=== PATIENT | male | born 1930 | race Caucasian/White ===

== ENCOUNTER 2018-11-06 22:16 | Observation (INO) | payer MEDICARE ==
[2018-11-06] MEDS ORDERED: ONDANSETRON 4 MG/2 ML VIAL IVP STA (22:21)
[2018-11-06] MEDS ORDERED: PANTOPRAZOLE 40 MG/10 ML VIAL IVP STA (22:21)
[2018-11-06] MEDS ORDERED: LORazepam 2 MG/ML INJ IV STA (22:21)
[2018-11-06] MEDS ORDERED: SODIUM CHLORIDE 0.9% 500 ML 500 ML IV STA (22:21)
[2018-11-06] MEDS ORDERED: SODIUM CHLORIDE 0.9% 1,000 ML IV STA (22:21)
[2018-11-06 23:00] LABS: Basophils % (A) 0 %; Eosinophils % (A) 0 %; HGB 13.6 gm/dL (13.0-17.5); Lymphocytes # (A) 1.2 k/uL (1.0-4.8); Lymphocytes % (A) 11 %; MCH 28.8 pg (25.0-35.0); MCV 92.8 fL (80.0-100.0); Mean Platelet Volume 7.7; Monocytes # (A) 0.4 k/uL (0-1.0); Monocytes % (A) 4 %; Neutrophils # (A) 9.2 k/uL (1.3-7.7); Neutrophils % (A) 84 %; Platelet Count 198 k/uL (150-450); RBC 4.74 m/uL (4.30-5.90); RDW 13.9 % (11.5-15.5)
--- NOTE | 2018-11-06 23:01 | ED ---
Dizziness HPI - General Chief Complaint: Dizziness Stated Complaint: Dizziness/Vomiting Time Seen by Provider: 11/06/18 22:21 Source: EMS, RN notes reviewed, old records reviewed Mode of arrival: EMS Limitations: no limitations - History of Present Illness Initial Comments: This is an 88-year-old male the ER for evaluation patient resents today for eval uation of sudden onset dizziness with nausea and vomiting. Intractable nausea vomiting no headache. No trauma. Patient's on anticoagulation not TPA candidate. denies any other neurological complaint actively vomiting here in the ER history obtained from family members and EMS MD Complaint: dizziness, difficulty walking -: hour(s) Timing: sudden onset Description: sense of movement, "room spinning", off-balance, difficulty walking History of Same: No History of Trauma: No Severity: moderate Improves With: remaining still Worsens With: movement Associated Symptoms: denies other symptoms - Related Data Home Medications Medication Instructions Recorded Confirmed Multivitamins, Thera [Multivitamin 1 tab PO DAILY 12/30/16 11/06/18 (formulary)] Simvastatin [Zocor] 20 mg PO HS 12/30/16 11/06/18 Aspirin EC [Ecotrin Low Dose] 81 mg PO DAILY 11/06/18 11/06/18 Glucosam/Johnathon-Msm1/C/Jr/Bosw 1 tab PO DAILY 11/06/18 11/06/18 [Glucosamine-Chondroitin Tablet] Metoprolol Succinate (ER) [Toprol 100 mg PO DAILY 11/06/18 11/06/18 Xl] Rivaroxaban [Xarelto] 15 mg PO HS 11/06/18 11/06/18 Allergies Allergy/AdvReac Type Severity Reaction Status Date / Time No Known Allergies Allergy Verified 11/06/18 22:37 Review of Systems ROS Statement: Those systems with pertinent positive or pertinent negative responses have been documented in the HPI. ROS Other: All systems not noted in ROS Statement are negative. Past Medical History Past Medical History: Atrial Fibrillation History of Any Multi-Drug Resistant Organisms: None Reported Past Surgical History: Orthopedic Surgery Additional Past Surgical History / Comment(s): right knee x2 knee scopes, blepharoplasty right eye Past Psychological History: No Psychological Hx Reported Smoking Status: Former smoker Past Alcohol Use History: Occasional Past Drug Use History: None Reported - Past Family History Mother Family Medical History: Coronary Artery Disease (CAD) Father Family Medical History: Coronary Artery Disease (CAD) Brother(s) Family Medical History: Cancer (col;on), Neurologic Disorder (Parkinson's) Son(s) Family Medical History: Diabetes Mellitus General Exam - General Exam Comments Initial Comments: NIH of 0 Limitations: no limitations General appearance: alert, in no apparent distress Head exam: Present: atraumatic, normocephalic, normal inspection Eye exam: Present: normal appearance, PERRL, EOMI. Absent: scleral icterus, conjunctival injection, periorbital swelling ENT exam: Present: normal exam, mucous membranes moist Neck exam: Present: normal inspection. Absent: tenderness, meningismus, lymphadenopathy Respiratory exam: Present: normal lung sounds bilaterally. Absent: respiratory distress, wheezes, rales, rhonchi, stridor Cardiovascular Exam: Present: regular rate, normal rhythm, normal heart sounds. Absent: systolic murmur, diastolic murmur, rubs, gallop, clicks GI/Abdominal exam: Present: soft, normal bowel sounds. Absent: distended, tenderness, guarding, rebound, rigid Extremities exam: Present: normal inspection, full ROM, normal capillary refill. Absent: tenderness, pedal edema, joint swelling, calf tenderness Back exam: Present: normal inspection Neurological exam: Present: alert, oriented X3, CN II-XII intact Psychiatric exam: Present: normal affect, normal mood Skin exam: Present: warm, dry, intact, normal color. Absent: rash Course Vital Signs 11/06/18 11/06/18 11/06/18 22:35 23:00 23:10 Temperature 97.4 F L Pulse Rate 73 83 83 Respiratory 18 20 20 Rate Blood Pressure 153/92 184/117 172/112 O2 Sat by Pulse 99 95 90 L Oximetry - Reevaluation(s) Reevaluation #1: 11/06/18 23:32 Medical records reviewed Reevaluation #2: 11/06/18 23:32 Patient has significant improvement in symptoms here in the ER Reevaluation #3: 11/06/18 23:32 No focal neurological findings EKG Findings - EKG Comments: EKG Findings:: EKG shows A. fib rate of 87, QRS 70, QTc 488 Medical Decision Making - Medical Decision Making 88 male the ER for evaluation presents today for evaluation regards to nausea vomiting elevated blood pressure not feeling well. Patient be admitted for nausea control blood pressure control - Lab Data Result diagrams: 11/06/18 22:45 11/06/18 22:45 Lab Results 11/06/18 11/06/18 11/06/18 Range/Units 22:45 22:45 22:45 WBC 11.0 H (3.8-10.6) k/uL RBC 4.74 (4.30-5.90) m/uL Hgb 13.6 (13.0-17.5) gm/dL Hct 44.0 (39.0-53.0) % MCV 92.8 (80.0-100.0) fL MCH 28.8 (25.0-35.0) pg MCHC 31.0 (31.0-37.0) g/dL RDW 13.9 (11.5-15.5) % Plt Count 198 (150-450) k/uL Neutrophils % 84 % Lymphocytes % 11 % Monocytes % 4 % Eosinophils % 0 % Basophils % 0 % Neutrophils # 9.2 H (1.3-7.7) k/uL Lymphocytes # 1.2 (1.0-4.8) k/uL Monocytes # 0.4 (0-1.0) k/uL Eosinophils # 0.0 (0-0.7) k/uL Basophils # 0.0 (0-0.2) k/uL PT (9.0-12.0) sec INR (<1.2) APTT (22.0-30.0) sec Sodium 139 (137-145) mmol/L Potassium 4.8 (3.5-5.1) mmol/L Chloride 106 (98-107) mmol/L Carbon Dioxide 21 L (22-30) mmol/L Anion Gap 12 mmol/L BUN 20 (9-20) mg/dL Creatinine 0.91 (0.66-1.25) mg/dL Est GFR (CKD-EPI)AfAm 87 (>60 ml/min/1.73 sqM) Est GFR (CKD-EPI)NonAf 76 (>60 ml/min/1.73 sqM) Glucose 194 H (74-99) mg/dL Plasma Lactic Acid Elder 1.9 (0.7-2.0) mmol/L Calcium 9.3 (8.4-10.2) mg/dL Phosphorus 2.9 (2.5-4.5) mg/dL Magnesium 2.0 (1.6-2.3) mg/dL Total Bilirubin 0.8 (0.2-1.3) mg/dL AST 30 (17-59) U/L ALT 19 L (21-72) U/L Alkaline Phosphatase 74 (38-126) U/L Creatine Kinase 49 L (55-170) U/L Troponin I (0.000-0.034) ng/mL Total Protein 7.4 (6.3-8.2) g/dL Albumin 4.2 (3.5-5.0) g/dL Lipase 70 (23-300) U/L 11/06/18 11/06/18 Range/Units 22:45 22:45 WBC (3.8-10.6) k/uL RBC (4.30-5.90) m/uL Hgb (13.0-17.5) gm/dL Hct (39.0-53.0) % MCV (80.0-100.0) fL MCH (25.0-35.0) pg MCHC (31.0-37.0) g/dL RDW (11.5-15.5) % Plt Count (150-450) k/uL Neutrophils % % Lymphocytes % % Monocytes % % Eosinophils % % Basophils % % Neutrophils # (1.3-7.7) k/uL Lymphocytes # (1.0-4.8) k/uL Monocytes # (0-1.0) k/uL Eosinophils # (0-0.7) k/uL Basophils # (0-0.2) k/uL PT 12.6 H (9.0-12.0) sec INR 1.2 H (<1.2) APTT 30.8 H (22.0-30.0) sec Sodium (137-145) mmol/L Potassium (3.5-5.1) mmol/L Chloride (98-107) mmol/L Carbon Dioxide (22-30) mmol/L Anion Gap mmol/L BUN (9-20) mg/dL Creatinine (0.66-1.25) mg/dL Est GFR (CKD-EPI)AfAm (>60 ml/min/1.73 sqM) Est GFR (CKD-EPI)NonAf (>60 ml/min/1.73 sqM) Glucose (74-99) mg/dL Plasma Lactic Acid Elder (0.7-2.0) mmol/L Calcium (8.4-10.2) mg/dL Phosphorus (2.5-4.5) mg/dL Magnesium (1.6-2.3) mg/dL Total Bilirubin (0.2-1.3) mg/dL AST (17-59) U/L ALT (21-72) U/L Alkaline Phosphatase (38-126) U/L Creatine Kinase (55-170) U/L Troponin I <0.012 (0.000-0.034) ng/mL Total Protein (6.3-8.2) g/dL Albumin (3.5-5.0) g/dL Lipase (23-300) U/L - Radiology Data Radiology results: report reviewed (CT brain is negative for acute disease), image reviewed Disposition Clinical Impression: Cerebrovascular accident, Transient cerebral ischemia, Hypertension Disposition: ADMITTED IP TO THIS [facility] Condition: Good Is patient prescribed a controlled substance at d/c from ED?: No Referrals: Tyson Espinoza MD [Primary Care Provider] - 1-2 days
[2018-11-06 23:04] LABS: Albumin 4.2 g/dL (3.5-5.0); Calcium 9.3 mg/dL (8.4-10.2); Phosphorus 2.9 mg/dL (2.5-4.5); Potassium 4.8 mmol/L (3.5-5.1); Total Bilirubin 0.8 mg/dL (0.2-1.3); Total Protein 7.4 g/dL (6.3-8.2)
[2018-11-06 23:08] LABS: INR 1.2 (<1.2); Partial Thromboplastin Time 30.8 sec (22.0-30.0); Prothrombin Time 12.6 sec (9.0-12.0)
[2018-11-06] MEDS ORDERED: LABETALOL 5 MG/ML VIAL MDV IVP STA (23:26)
[2018-11-06] MEDS ORDERED: ASPIRIN 325 MG TAB PO STA (23:26)
[2018-11-06] MEDS ORDERED: ONDANSETRON 4 MG/2 ML VIAL IVP PRN (23:32)
--- NOTE | 2018-11-06 23:35 | CT ---
EXAM: CT Head Without Intravenous Contrast CLINICAL HISTORY: pain TECHNIQUE: Axial computed tomography images of the head/brain without intravenous contrast. CTDI is 0.085, 0.085, 49.1 mGy and DLP is 1117.4 mGy-cm. This CT exam was performed using one or more of the following dose reduction techniques: automated exposure control, adjustment of the mA and/or kV according to patient size, and/or use of iterative reconstruction technique. COMPARISON: No relevant prior studies available. FINDINGS: Brain: No acute intracranial hemorrhage, mass, or significant mass effect. Nonspecific areas of hypoattenuation in the periventricular white matter likely represent the sequela of chronic small vessel ischemic disease. Indeterminate subcentimeter focus of hypoattenuation in the left caudate nucleus, possibly a remote lacunar infarct. Ventricles: Ventricular and sulcal prominence commensurate with the patient's age. Bones/joints: Unremarkable. No acute fracture. Soft tissues: Unremarkable. Sinuses: Unremarkable. Mastoid air cells: Unremarkable. IMPRESSION: No acute intracranial abnormality.
[2018-11-07] MEDS: SODIUM CHLORIDE 0.9% 1,000 ML IV SCH ×2 (00:27→11:04)
--- NOTE | 2018-11-07 01:34 | US ---
EXAM: US Duplex Bilateral Extracranial Arteries CLINICAL HISTORY: ITS.REASON US Reason: Pain TECHNIQUE: Real-time duplex ultrasound scan of the extracranial arteries integrating B-mode two-dimensional vascular structure, Doppler spectral analysis and color flow Doppler imaging. COMPARISON: No relevant prior studies available. FINDINGS: Plaques seen in the bilateral carotids bulb, proximal ICA, and proximal ECA. Tortuous left ICA. Velocities are measured in centimeters per second. Right: CCA: 51 ICA: 65 ECA: 104 IC/CC ratio 1.3 Vert: Antegrade. Left: 59 ICA: 122 ECA: 107 ICA/CCA ratio 2.1 Vert: Antegrade. CAROTID STENOSIS REFERENCE USING SRU CRITERIA: Mild - <50% stenosis. ICA PSV is less than 125 cm/second and plaque or intimal thickening is visible. Moderate - 50-69% stenosis. ICA PSV is 125 to 230 cm/second and plaque is visible. Severe - 70-94% stenosis. ICA PSV is more than 230 cm/second and visible plaque with lumen narrowing is seen. Near occlusion - 95-99% stenosis. ICA PSV is variable and significant plaque with luminal narrowing is seen. Occluded - 100% stenosis. No flow identified. 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 No hemodynamically significant stenosis.
[2018-11-07 05:34] LABS: Cholesterol 146 mg/dL (<200); HDL Cholesterol 38 mg/dL (40-60); LDL Cholesterol,Calculated 80 mg/dL (0-99); Triglycerides 142 mg/dL (<150)
--- NOTE | 2018-11-07 08:47 | P.CNNES ---
History of Present Illness Consult date: 11/07/18 Requesting physician: Tyler Thomson Reason for Consult: TIA Chief complaint: Dizziness History of Present Illness: This is an 88 RH female who presented to ER last noc with sudden-onset diz ziness, N/V. Dizziness described room-spinning sensation with difficulty walking. Abrupt onset. Vision a bit blurred. No h/o head/neck trauma, chiropractic manipulation or heavy lifting. No other focal neuro c/o such as diplopia, amaurosis, drop attacks, facial numbness or droop, tinnitus, dysarthri a, dysphagia, aphasia, alternating or hemianesthesia or paresis, tremor or bowel/bladder incontinence. NIHSS 0 in ER. EKG showed afib rate 87. CT Head showed nil acute. Admitted for TIA work-up. Review of Systems I have performed a 14-point organ ROS with patient; pertinents are as per HPI. Past Medical History Past Medical History: Atrial Fibrillation History of Any Multi-Drug Resistant Organisms: None Reported Past Surgical History: Orthopedic Surgery Additional Past Surgical History / Comment(s): right knee x2 knee scopes, blepharoplasty right eye Past Anesthesia/Blood Transfusion Reactions: No Reported Reaction Past Psychological History: No Psychological Hx Reported Smoking Status: Former smoker Past Alcohol Use History: Occasional Additional Past Alcohol Use History / Comment(s): Patient was a smoker and quit in 1957. He denies any medical marijuana or street drug use. 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 He lives at home with his . Past Drug Use History: None Reported - Past Family History Mother Family Medical History: Coronary Artery Disease (CAD) Father Family Medical History: Coronary Artery Disease (CAD) Brother(s) Family Medical History: Cancer, Neurologic Disorder Son(s) Family Medical History: Diabetes Mellitus Medications and Allergies Home Medications Medication Instructions Recorded Confirmed Type Multivitamins, Thera [Multivitamin 1 tab PO DAILY 12/30/16 11/06/18 History (formulary)] Simvastatin [Zocor] 20 mg PO HS 12/30/16 11/06/18 History Aspirin EC [Ecotrin Low Dose] 81 mg PO DAILY 11/06/18 11/06/18 History Glucosam/Johnathon-Msm1/C/Jr/Bosw 1 tab PO DAILY 11/06/18 11/06/18 History [Glucosamine-Chondroitin Tablet] Metoprolol Succinate (ER) [Toprol 100 mg PO DAILY 11/06/18 11/06/18 History Xl] Rivaroxaban [Xarelto] 15 mg PO HS 11/06/18 11/06/18 History Allergies Allergy/AdvReac Type Severity Reaction Status Date / Time No Known Allergies Allergy Verified 11/06/18 22:37 Physical Examination - Vital Signs Vital Signs: Vital Signs Temp Pulse Pulse Resp BP BP Pulse Ox 11/07/18 04:00 97.6 F 80 16 137/83 97 11/07/18 02:03 97.4 F L 91 20 165/86 97 11/07/18 00:29 85 18 130/85 98 11/06/18 23:10 83 20 172/112 90 L 11/06/18 23:00 83 20 184/117 95 11/06/18 22:35 97.4 F L 73 18 153/92 99 Intake and Output 11/06/18 11/07/18 11/07/18 22:59 06:59 14:59 Output Total 250 Balance -250 Output: Urine 250 Other: Voiding Method Toilet Urinal # Voids 1 Weight 72.575 kg 75.8 kg Gen NAD Pleasant and cooperative HEENT NCAT Sclera without icterus O/P clear Neck Supple No carotid bruit Cor RRR no m/r/g Lungs CTAB Abd Soft NTND +BS Ext Warm to touch No edema Neuro MS A+Ox4 Normal fluency Able to follow all commands CN PERRL VFF no APD EOMI a couple beats of right lateral nystagmus or LULU No facial asymmetry Masseter's symmetric Hearing intact to normal voice bilaterally Speech not dysarthric Equal elevation of palate Tongue midline Sym shrug and SCM bilaterally Motor Normal bulk/tone No pronator drift or tremors Strength 5/5 sym throughout Sens Intact to LT x4 No neglect or extinction Coord No dysmetria on FTN bilaterally DTRs 2+/4 sym throughout Toes downgoing bilaterally No clonus at achilles Gait Deferred NIHSS 0 Results - Laboratory Findings CBC and BMP: 11/06/18 22:45 11/06/18 22:45 Abnormal Lab Findings: Abnormal Labs 11/06/18 11/06/18 11/06/18 22:45 22:45 22:45 WBC 11.0 H Neutrophils # 9.2 H PT 12.6 H INR 1.2 H APTT 30.8 H Carbon Dioxide 21 L Glucose 194 H ALT 19 L Creatine Kinase 49 L HDL Cholesterol 11/06/18 22:45 WBC Neutrophils # PT INR APTT Carbon Dioxide Glucose ALT Creatine Kinase HDL Cholesterol 38 L - Diagnostic Findings Additional findings: CT Head wo cont 11/07/18. No ICH. Nil acute. Carotid duplex 11/07/18. Atherosclerotic changes in BICA without hemodynamically significant stenosis. I have reviewed neuroimages myself. Assessment and Plan Assessment: Vertigo, suspect more peripheral than central Plan: -MRI Brain wo sebastián -Carotid duplex reviewed -TTE -On ASA 81mg/day, DOAC and statin therapy -TSH, B12 -PT/OT/SP per protocol -DVT prophylaxis: Guicho Thank you for this consultation. Please call with ?. Time with Patient: Greater than 30 (Time spent in direct patient care, greater than 50% of which was spent in [id number] counseling and coordination of care: 70 minutes)
[2018-11-07] MEDS: METOPROLOL SUCCINATE (ER) 100 MG TAB.ER.24H PO SCH (11:04)
--- NOTE | 2018-11-07 11:07 | CONS ---
CONSULTATION Tyler is an 88-year-old gentleman with history of atrial fibrillation prior history of CVA, dyslipidemia, who presented to hospital with symptoms of dizziness, nausea. Neurology had been consulted for TIA, they did not believe it was one. We have been consulted because of his cardiac history and underlying atrial fibrillation and uncontrolled hypertension. Patient denies chest pain, difficulty in breathing, palpitations, dizziness or syncope. PAST MEDICAL HISTORY: Significant for chronic atrial fibrillation, dyslipidemia, and hypertension. MEDICATIONS: At home include Zocor 20 q. daily, aspirin, Toprol-XL 100 q. daily, and Xarelto 15 mg daily. FAMILY HISTORY: Significant for premature coronary artery disease. Significant for diabetes, cancer and neurological disease. SOCIAL HISTORY: Negative for smoking, EtOH abuse, or drug abuse. REVIEW OF SYSTEMS: HEENT: As described above. CARDIAC: Negative. RESPIRATORY: Negative. GI: Negative. GENITOURINARY: Negative. ALLERGY/IMMUNOLOGY: Negative. SKIN: Negative. MUSCULOSKELETAL: Negative. ENDOCRINE: Negative. DERM: Negative. CONSTITUTIONAL: Negative. ONCOLOGICAL: Negative. Rest of the system review is not relevant. PHYSICAL EXAM: Patient is comfortable at rest. Vital signs are stable. There is no jugular venous distention. Carotid upstroke is normal. There is no bruit. chest exam reveals good air entry bilaterally. Heart exam reveals first and second heart sounds, irregular rhythm and a systolic murmur at the left lower sternal border. Abdomen is soft. Exam of extremities did not reveal any edema. Peripheral pulses are felt. LABS: Show a hemoglobin of 13.6, platelet count is 198, potassium 4.8, creatinine is 0.9. EKG shows atrial fibrillation with nonspecific ST-T wave changes. ASSESSMENT: 1. Dizziness probably noncardiac in origin. 2. Chronic atrial fibrillation with controlled ventricular rate. 3. History of cerebrovascular accident. 4. Uncontrolled hypertension. 5. Chronic atrial fibrillation. PLAN: Patient's blood pressure is well controlled. Continue current medications. I will obtain a 2D echo on her. MMODL / IJN: [id number] /
--- NOTE | 2018-11-07 11:46 | ECHOF ---
Referral Reason:HTN MEASUREMENTS -------- HEIGHT: 180.3 cm WEIGHT: 75.7 kg BP: 137/83 RVIDd: 3.9 cm (< 3.3) IVSd: 1.6 cm (0.6 - 1.1) LVIDd: 2.8 cm (3.9 - 5.3) LVPWd: 1.4 cm (0.6 - 1.1) IVSs: 1.7 cm LVIDs: 2.0 cm LVPWs: 1.6 cm LAESV Index (A-L): 34.70 ml/m Ao Diam: 3.2 cm (2.0 - 3.7) AV Cusp: 1.7 cm (1.5 - 2.6) LA Diam: 5.0 cm (2.7 - 3.8) EPSS: 0.9 cm AV maxP.77 mmHg AV meanP.76 mmHg RAP: 20.00* mmHg RVSP: 61.12 mmHg MV EF SLOPE: 128.77 mm/s (70 - 150) MV EXCURSION: 1.59 cm (> 18.000) FINDINGS -------- Atrial fibrillation. This was a technically adequate study. The left ventricular size is normal. There is moderate concentric left ventricular hypertrophy. O verall left ventricular systolic function is normal with, an EF between 55 - 60 %. The right ventricle is moderately enlarged. Left atrium is moderately dilated by volume. The right atrial size is normal. Interatrial and interventricular septum intact. There is moderate aortic valve sclerosis without stenosis. There is no evidence of aortic regurgita tion. There is no evidence of aortic stenosis. The mitral valve leaflets are mildly thickened. Moderate mitral annular calcification present. Mi ld mitral regurgitation is present. [id number]-[id number] tricuspid regurgitation present. There is severe pulmonary hypertension. The rig ht ventricular systolic pressure, as measured by Doppler, is 61.12mmHg. Trace/mild (physiologic) pulmonic regurgitation. The aortic root size is normal. The inferior vena cava is dilated with no significant inspiratory collapse which is consistent estima antonia right atrial pressure of >20 mmHg. There is no pericardial effusion. CONCLUSIONS -------- 1. Atrial fibrillation. 2. This was a technically adequate study. 3. The left ventricular size is normal. 4. There is moderate concentric left ventricular hypertrophy. 5. Overall left ventricular systolic function is normal with, an EF between 55 - 60 %. 6. The right ventricle is moderately enlarged. 7. Left atrium is moderately dilated by volume. 8. The right atrial size is normal. 9. Interatrial and interventricular septum intact. 10. There is moderate aortic valve sclerosis without stenosis. 11. There is no evidence of aortic regurgitation. 12. There is no evidence of aortic stenosis. 13. The mitral valve leaflets are mildly thickened. 14. Moderate mitral annular calcification present. 15. Mild mitral regurgitation is present. 16. Ybda-bc-gqbqxerm tricuspid regurgitation present. 17. There is severe pulmonary hypertension. 18. The right ventricular systolic pressure, as measured by Doppler, is 61.12mmHg. 19. Trace/mild (physiologic) pulmonic regurgitation. 20. The aortic root size is normal. 21. The inferior vena cava is dilated with no significant inspiratory collapse which is consistent es timated right atrial pressure of >20 mmHg. 22. There is no pericardial effusion. SENIOR ADMINISTRATIVE SUPPORT: Doreen Lee RDCS
[2018-11-07] MEDS ORDERED: MECLIZINE 25 MG TAB PO PRN (12:20)
[2018-11-07] MEDS: LISINOPRIL 5 MG TAB PO SCH (12:56)
--- NOTE | 2018-11-07 14:12 | P.HPIM ---
History of Present Illness H&P Date: 11/07/18 Chief Complaint: Dizziness nausea vomiting This is an 88-year-old male patient of Dr. Espinoza with a past medical history of chronic atrial fibrillation on Xarelto, hyperlipidemia, remote history of tobacco use. Patient complains of feeling dizzy and later in the day developed diarrhea. He states every time he moves he becomes dizzy and has vomiting. He denies any chest pain. He does have some chronic shortness of breath that is unchanged. He denies any abdominal pain. He does wear hearing aids. He complains of runny nose that is chronic and no change. He denies any problems with his speech. Patient presented to [facility] emergency center for evaluation. It initially, blood pressure 184/117. Heart rate 73, pulse ox 99% on room air. Patient has been afebrile. EKG was atrial fibrillation at controlled rate of [address]-T wave changes. CT of the head showed no acute intracranial abnormality. Carotid ultrasound showed no hemodynamically significant stenosis. Patient was placed on the cardiac stepdown unit and has been seen by neurology, Dr. Rosales and has been diagnosed with vertigo, peripheral versus central. He recommended continuing aspirin, Xarelto and statin therapy, echocardiogram, MRI of the brain. Patient has been seen by Dr. Falcon from cardiology with recommendations for blood pressure control and 2-D echo. Echocardiogram reveals EF of 55-60% with moderate concentric left ventricular hypertrophy, moderate aortic valve sclerosis without stenosis, mild mitral regurgitation, [id number] tricuspid regurgitation, severe pulmonary hypertension. Blood pressure remains elevated for which we will add lisinopril, IV fluids will be changed to saline lock. At the time of this evaluation, patient states that his symptoms are much improved and he does not feel dizzy anymore but has a fuzzy feeling. Symptoms seem to occur with rotation of his head. Orthostatic vital signs at been ordered. Review of Systems Constitutional: Denies anorexia, Denies chills, Denies chronic headaches, Denies fatigue, Denies fever, Denies lethargy, Denies malaise, Denies poor appetite, Denies weakness, Denies weight loss Eyes: denies blurred vision, denies loss of vision Ears: deny: earache Ears, nose, mouth and throat: Reports nasal discharge, Reports vertigo, Denies dysphagia, Denies epistaxis, Denies headache, Denies nasal congestion, Denies sore throat Cardiovascular: Denies chest pain, Denies decreased exercise tolerance, Denies dyspnea on exertion, Denies edema, Denies leg edema, Denies lightheadedness, Denies shortness of breath, Denies syncope Respiratory: Denies cough, Denies cough with sputum, Denies dyspnea, Denies excessive sputum, Denies hemoptysis, Denies home oxygen, Denies respiratory infections, Denies wheezing Gastrointestinal: Denies abdominal pain, Denies constipation, Denies diarrhea, Denies loss of appetite, Denies melena, Denies nausea, Denies vomiting Genitourinary: Denies urinary frequency, Denies urinary retention Musculoskeletal: Denies frequent falls, Denies gait dysfunction, Denies muscle weakness, Denies myalgias Integumentary: Denies pruritus, Denies rash, Denies wounds Neurological: Reports vertigo, Denies aphasia, Denies change in mentation, Denies change in smell/taste, Denies change in speech, Denies gait dysfunction, Denies head injury, Denies headaches, Denies numbness, Denies seizures, Denies weakness Psychiatric: Denies anxiety, Denies depression Endocrine: Denies fatigue, Denies weight change Past Medical History Past Medical History: Atrial Fibrillation History of Any Multi-Drug Resistant Organisms: None Reported Past Surgical History: Orthopedic Surgery Additional Past Surgical History / Comment(s): right knee x2 knee scopes, blepharoplasty right eye Past Anesthesia/Blood Transfusion Reactions: No Reported Reaction Past Psychological History: No Psychological Hx Reported Smoking Status: Former smoker Past Alcohol Use History: Occasional Additional Past Alcohol Use History / Comment(s): Patient was a smoker and quit in 1957. He denies any medical marijuana or street drug use. 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 He lives at home with his . Past Drug Use History: None Reported - Past Family History Mother Family Medical History: Coronary Artery Disease (CAD) Father Family Medical History: Coronary Artery Disease (CAD) Brother(s) Family Medical History: Cancer, Neurologic Disorder Additional Family Medical History / Comment(s): Parkinson's Son(s) Family Medical History: Diabetes Mellitus Medications and Allergies Home Medications Medication Instructions Recorded Confirmed Type Multivitamins, Thera [Multivitamin 1 tab PO DAILY 12/30/16 11/06/18 History (formulary)] Simvastatin [Zocor] 20 mg PO HS 12/30/16 11/06/18 History Aspirin EC [Ecotrin Low Dose] 81 mg PO DAILY 11/06/18 11/06/18 History Glucosam/Johnathon-Msm1/C/Jr/Bosw 1 tab PO DAILY 11/06/18 11/06/18 History [Glucosamine-Chondroitin Tablet] Metoprolol Succinate (ER) [Toprol 100 mg PO DAILY 11/06/18 11/06/18 History Xl] Rivaroxaban [Xarelto] 15 mg PO HS 11/06/18 11/06/18 History Allergies Allergy/AdvReac Type Severity Reaction Status Date / Time No Known Allergies Allergy Verified 11/06/18 22:37 Physical Exam Vitals: Vital Signs Temp Pulse Pulse Resp BP BP Pulse Ox 11/07/18 04:00 97.6 F 80 16 137/83 97 11/07/18 02:03 97.4 F L 91 20 165/86 97 11/07/18 00:29 85 18 130/85 98 11/06/18 23:10 83 20 172/112 90 L 11/06/18 23:00 83 20 184/117 95 11/06/18 22:35 97.4 F L 73 18 153/92 99 Intake and Output 11/06/18 11/07/18 11/07/18 22:59 06:59 14:59 Intake Total 240 Output Total 250 Balance -250 240 Intake: Oral 240 Output: Urine 250 Other: Voiding Method Toilet Urinal # Voids 1 Weight 72.575 kg 75.8 kg Gen: This is a 88-year-old male. He is resting in bed and appears to be comfortable and in no acute distress. Patient is a Should and is having no difficulty swallowing. HEENT: Head is atraumatic, normocephalic. Pupils equal, round. Sclerae is anicteric. NECK: Supple. No JVD. No lymphadenopathy. No thyromegaly. LUNGS: Clear to auscultation. No wheezes or rhonchi. No intercostal retractions. HEART: Regular rate and rhythm. No murmur. ABDOMEN: Soft. Bowel sounds are present. No masses. No tenderness. EXTREMITIES: No pedal edema. No calf tenderness. NEUROLOGICAL: Patient is awake, alert and oriented x3. Cranial nerves 2 through 12 are grossly intact. Positive nystagmus. Results CBC & Chem 7: 11/06/18 22:45 11/06/18 22:45 Labs: Abnormal Lab Results - Last 24 Hours (Table) 11/06/18 11/06/18 11/06/18 Range/Units 22:45 22:45 22:45 WBC 11.0 H (3.8-10.6) k/uL Neutrophils # 9.2 H (1.3-7.7) k/uL PT 12.6 H (9.0-12.0) sec INR 1.2 H (<1.2) APTT 30.8 H (22.0-30.0) sec Carbon Dioxide 21 L (22-30) mmol/L Glucose 194 H (74-99) mg/dL ALT 19 L (21-72) U/L Creatine Kinase 49 L (55-170) U/L HDL Cholesterol (40-60) mg/dL 11/06/18 Range/Units 22:45 WBC (3.8-10.6) k/uL Neutrophils # (1.3-7.7) k/uL PT (9.0-12.0) sec INR (<1.2) APTT (22.0-30.0) sec Carbon Dioxide (22-30) mmol/L Glucose (74-99) mg/dL ALT (21-72) U/L Creatine Kinase (55-170) U/L HDL Cholesterol 38 L (40-60) mg/dL Thrombosis Risk Factor Assmnt - DVT/VTE Prophylaxis DVT/VTE Prophylaxis: Pharmacologic Prophylaxis ordered - Choose All That Apply Any of the Below Risk Factors Present?: No Other Risk Factors: Yes Each Risk Factor Represents 3 Points: Age 75 years or older Other congenital or acquired thrombophilia - If yes, enter type in comment: No Thrombosis Risk Factor Assessment Total Risk Factor Score: 3 Thrombosis Risk Factor Assessment Level: Moderate Risk Assessment and Plan Plan: 1. Vertigo. Consult with neurology appreciated. MRI of the brain, ech ocardiogram and vitamin B12 level have been ordered. Continue aspirin 81 mg daily, Xarelto 50 mg at bedtime, Zocor 20 mg at bedtime. 2. Hypertension. Patient started on lisinopril 5 mg daily. 3. Chronic atrial fibrillation rate controlled. Continue Xarelto and metoprolol. 4. 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 5. History of right knee effusion, stable. 6. DVT prophylaxis. Xarelto Patient placed as an observation status. Discharge plan: Home most likely tomorrow. Impression and plan of care have been directed as dictated by the signing physician. Brianna Clay nurse practitioner acting as scribe for signing physician.
--- NOTE | 2018-11-07 15:17 | MR ---
MR brain without contrast HISTORY: Vertigo Multiplanar multisequence imaging through the brain Correlation CT brain 11/06/2018 There is no restricted diffusion. Cortical atrophy is again noted. Corpus callosum, pituitary, cervic al medullary junction, cerebellopontine angles are within normal limits. There is no hemorrhage or hy drocephalus. Mild inflammatory change present within the ethmoid air cells and frontal sinus. Conflue nt and scattered hyperintensities present in the periventricular white matter on inversion recovery T 2-weighted sequences. There are normal vascular flow voids. Orbits show symmetric appearance. IMPRESSION: Age-related atrophy and chronic small vessel ischemia. Mild sinus disease.
[2018-11-07] MEDS ORDERED: RIVAROXABAN 15 MG TAB PO SCH (21:00)
[2018-11-07] MEDS ORDERED: ATORVASTATIN 10 MG TAB PO SCH (21:00)
[2018-11-07] MEDS ORDERED: ASPIRIN 325 MG TAB PO SCH (23:28)
[2018-11-08 00:19] VITALS: PULSE 79
[2018-11-08 06:01] VITALS: RESP 16
[2018-11-08] MEDS: METOPROLOL SUCCINATE (ER) 100 MG TAB.ER.24H PO SCH (08:06)
[2018-11-08] MEDS: LISINOPRIL 5 MG TAB PO SCH (08:06)
[2018-11-08 08:21] VITALS: BP 141/83; TEMP 97.8
[2018-11-08] MEDS ORDERED: ASPIRIN 81 MG PO SCH (09:00)
--- NOTE | 2018-11-08 13:55 | P.DS ---
Providers Date of admission: 11/06/18 23:30 Expected date of discharge: 11/08/18 Attending physician: Bridgett Shaw Consults: 11/06/18 23:26 Consult Physician Routine Consulting Provider: Luis Rosales Consult Reason/Comments: tia Do you want consulting provider notified?: Yes Consult Physician Routine Consulting Provider: Jaswinder Simmons Consult Reason/Comments: htn Do you want consulting provider notified?: Yes Primary care physician: [facility] Course: This is an 88-year-old male patient of Dr. Espinoza with a past medical history of chronic atrial fibrillation on Xarelto, hyperlipidemia, remote history of tobacco use. Patient complains of feeling dizzy and later in the day developed diarrhea. He states every time he moves he becomes dizzy and has vomiting. He denies any chest pain. He does have some chronic shortness of breath that is unchanged. He denies any abdominal pain. He does wear hearing aids. He complains of runny nose that is chronic and no change. He denies any problems with his speech. Patient presented to [facility] emergency center for evaluation. It initially, blood pressure 184/117. Heart rate 73, pulse ox 99% on room air. Patient has been afebrile. EKG was atrial fibrillation at controlled rate of [address]-T wave changes. CT of the head showed no acute intracranial abnormality. Carotid ultrasound showed no hemodynamically significant stenosis. Patient was placed on the cardiac stepdown unit and has been seen by neurology, Dr. Rosales and has been diagnosed with vertigo, peripheral versus central. He recommended continuing aspirin, Xarelto and statin therapy, echocardiogram, MRI of the brain. Patient has been seen by Dr. Falcon from cardiology with recommendations for blood pressure control and 2-D echo. Echocardiogram reveals EF of 55-60% with moderate concentric left ventricular hypertrophy, moderate aortic valve sclerosis without stenosis, mild mitral regurgitation, [id number] tricuspid regurgitation, severe pulmonary hypertension. Blood pressure remains elevated for which we will add lisinopril, IV fluids will be changed to saline lock. At the time of this evaluation, patient states that his symptoms are much improved and he does not feel dizzy anymore but has a fuzzy feeling. Symptoms seem to occur with rotation of his head. Orthostatic vital signs at been ordered. 11/08: MRI of the brain revealed age-related atrophy and chronic small vessel ischemia. Mild sinus disease. Patient has not required meclizine. He states he is feeling much better and denies any dizziness. Blood pressure is lower this morning after we started lisinopril yesterday. Patient will not be provided a prescription for lisinopril and has been instructed to monitor his blood pressure and have Dr. Espinoza evaluated. Patient will be discharged home today in stable condition. Discharge diagnoses: 1. Vertigo. 2. Hypertension. 3. Chronic atrial fibrillation rate controlled. 4. 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 5. History of right knee effusion, stable. Discharge plan: Home Impression and plan of care have been directed as dictated by the signing physician. Brianna Clay nurse practitioner acting as scribe for signing physici an. Patient Condition at Discharge: Good Plan - Discharge Summary New Discharge Prescriptions: New Meclizine [Antivert] 25 mg PO Q6H PRN #30 tab PRN Reason: Vertigo Continue Multivitamins, Thera [Multivitamin (formulary)] 1 tab PO DAILY Simvastatin [Zocor] 20 mg PO HS Rivaroxaban [Xarelto] 15 mg PO HS Metoprolol Succinate (ER) [Toprol XL] 100 mg PO DAILY Glucosam/Johnathon-Msm1/C/Jr/Bosw [Glucosamine-Chondroitin Tablet] 1 tab PO DAILY Discontinued Aspirin EC [Ecotrin Low Dose] 81 mg PO DAILY Discharge Medication List Multivitamins, Thera [Multivitamin (formulary)] 1 tab PO DAILY 12/30/16 [History] Simvastatin [Zocor] 20 mg PO HS 12/30/16 [History] Glucosam/Johnathon-Msm1/C/Jr/Bosw [Glucosamine-Chondroitin Tablet] 1 tab PO DAILY 11/06/18 [History] Metoprolol Succinate (ER) [Toprol XL] 100 mg PO DAILY 11/06/18 [History] Rivaroxaban [Xarelto] 15 mg PO HS 11/06/18 [History] Meclizine [Antivert] 25 mg PO Q6H PRN #30 tab 11/08/18 [Rx] Follow up Appointment(s)/Referral(s): Tyson Espinoza MD [Primary Care Provider] - 1 Week (office closed call saturday for appt) Activity/Diet/Wound Care/Special Instructions: Tabitha maneuver--please print instructions for patient. Monitor BP at home and track for Dr. Espinoza. Discharge Disposition: HOME SELF-CARE
== END 2018-11-08 10:13 | disposition home or self-care (01) ==
LOC: EC 22:16 → 3SCARD 23:30
PROVIDERS: ADMIT Family Medicine; ATTEND Family Medicine
DX: R42 Dizziness and giddiness (principal); I10 Essential (primary) hypertension; I48.2 Chronic atrial fibrillation; I08.1 Rheumatic disorders of both mitral and tricuspid valves; I27.20 Pulmonary hypertension, unspecified; E78.5 Hyperlipidemia, unspecified; Z79.01 Long term (current) use of anticoagulants; Z79.82 Long term (current) use of aspirin; Z82.49 Family history of ischemic heart disease and other diseases of the circulatory system; Z83.3 Family history of diabetes mellitus; Z80.9 Family history of malignant neoplasm, unspecified; Z82.0 Family history of epilepsy and other diseases of the nervous system; Z86.73 Personal history of transient ischemic attack (TIA), and cerebral infarction without residual deficits; Z87.891 Personal history of nicotine dependence
CPT/HCPCS: 96374; 96375; 99285; 36415; 93005; 93306; 97116; 97162; 80061; 80053; 82607; 82550; 83605; 83690; 83735; 84100; 84443; 84484; 85025; 85610; 85730; 93880; 70450; 70551; G0378 ×3; J2060; J2405; C9113

== ENCOUNTER 2020-02-29 11:18 | Emergency (ER) | payer MEDICARE ==
[2020-02-29] MEDS ORDERED: SODIUM CHLORIDE 0.9% 500 ML 500 ML IV STA ×2 (12:09→13:06)
[2020-02-29] MEDS ORDERED: ACETAMINOPHEN TAB 500 MG TAB PO STA (12:10)
[2020-02-29] MEDS ORDERED: IBUPROFEN 600 MG TAB PO STA (12:10)
[2020-02-29 12:33] LABS: Basophils # (A) 0.1 k/uL (0-0.2); Basophils % (A) 1 %; Eosinophils % (A) 0 %; HCT 44.1 % (39.0-53.0); Hypochromasia Moderate; Lymphocytes # (A) 0.6 k/uL (1.0-4.8); Lymphocytes % (A) 12 %; MCH 26.4 pg (25.0-35.0); MCHC 31.9 g/dL (31.0-37.0); MCV 82.7 fL (80.0-100.0); Mean Platelet Volume 8.3; Monocytes # (A) 0.2 k/uL (0-1.0); Monocytes % (A) 3 %; Neutrophils # (A) 4.3 k/uL (1.3-7.7); Neutrophils % (A) 81 %; Platelet Count 210 k/uL (150-450); RBC 5.33 m/uL (4.30-5.90); RDW 14.9 % (11.5-15.5); WBC 5.4 k/uL (3.8-10.6)
[2020-02-29 12:43] LABS: Albumin 4.2 g/dL (3.5-5.0); Calcium 9.3 mg/dL (8.4-10.2); Potassium 4.5 mmol/L (3.5-5.1); Total Bilirubin 0.9 mg/dL (0.2-1.3); Total Protein 7.9 g/dL (6.3-8.2)
--- NOTE | 2020-02-29 12:43 | XR ---
EXAMINATION TYPE: XR chest 2V DATE OF EXAM: 02/29/2020 COMPARISON: None INDICATION: Difficulty breathing TECHNIQUE: Frontal and lateral views of the chest are obtained. FINDINGS: The heart size is mildly prominent. The pulmonary vasculature is normal. There are some mild patchy infiltrates present bilaterally. These are nonspecific and can be related to atypical pneumonia. Some underlying subcentimeter nodularity is not entirely excluded. Follow-up c hest studies are recommended.. IMPRESSION: 1. Local correlation recommended for atypical pneumonia. 2. There may be some chronic nodularity present. Follow-up chest studies are recommended
[2020-02-29 12:52] LABS: INR 0.9 (<1.2); Partial Thromboplastin Time 33.6 sec (22.0-30.0); Prothrombin Time 9.9 sec (9.0-12.0)
[2020-02-29] MEDS ORDERED: SODIUM CHLORIDE 0.9% 1,000 ML IV STA ×2 (13:00→13:07)
[2020-02-29] MEDS ORDERED: cefTRIAXone IN SWFI 1,000 MG/10 ML SYRINGE IVP STA (13:00)
[2020-02-29 13:03] LABS: D-Dimer 1.11 mg/L FEU (<0.60)
--- NOTE | 2020-02-29 13:22 | ED ---
General Adult HPI - General Chief complaint: Shortness of Breath Stated complaint: weakness/cough Time Seen by Provider: 02/29/20 11:35 Source: patient, family, RN notes reviewed Mode of arrival: wheelchair Limitations: no limitations - History of Present Illness Initial comments: 89-year-old male with a past medical history of atrial fibrillation, hype rlipidemia, hypertension presents to the emergency room for a chief cough. Patient has had a cough and shortness of breath for the past several days. States that when he takes a deep breath it causes a coughing spell. Otherwise denies any other shortness of breath. Denies any chest pain whatsoever. He has had a fever although unsure of how high it has been. He denies any other symptoms aside from weakness.Patient has no other complaints at this time including shortness of breath, chest pain, abdominal pain, nausea or vomiting, headache, or visual changes. - Related Data Home Medications Medication Instructions Recorded Confirmed Multivitamins, Thera [Multivitamin 1 tab PO DAILY 12/30/16 11/06/18 (formulary)] Simvastatin [Zocor] 20 mg PO HS 12/30/16 11/06/18 Glucosam/Johnathon-Msm1/C/Jr/Bosw 1 tab PO DAILY 11/06/18 11/06/18 [Glucosamine-Chondroitin Tablet] Metoprolol Succinate (ER) [Toprol 100 mg PO DAILY 11/06/18 11/06/18 XL] Rivaroxaban [Xarelto] 15 mg PO HS 11/06/18 11/06/18 Previous Rx's Medication Instructions Recorded Meclizine [Antivert] 25 mg PO Q6H PRN #30 tab 11/08/18 Benzonatate [Tessalon Perles] 200 mg PO Q8H PRN #15 capsule 02/29/20 Allergies Allergy/AdvReac Type Severity Reaction Status Date / Time No Known Allergies Allergy Verified 02/29/20 11:26 Review of Systems ROS Statement: Those systems with pertinent positive or pertinent negative responses have been documented in the HPI. ROS Other: All systems not noted in ROS Statement are negative. Past Medical History Past Medical History: Atrial Fibrillation, Hyperlipidemia, Hypertension History of Any Multi-Drug Resistant Organisms: None Reported Past Surgical History: Orthopedic Surgery Additional Past Surgical History / Comment(s): right knee x2 knee scopes, blepharoplasty right eye, cataracts Past Anesthesia/Blood Transfusion Reactions: No Reported Reaction Past Psychological History: No Psychological Hx Reported Smoking Status: Former smoker Past Alcohol Use History: Occasional Past Drug Use History: None Reported - Past Family History Mother Family Medical History: Coronary Artery Disease (CAD) Father Family Medical History: Coronary Artery Disease (CAD) Brother(s) Family Medical History: Cancer, Neurologic Disorder Additional Family Medical History / Comment(s): Parkinson's Son(s) Family Medical History: Diabetes Mellitus General Exam Limitations: no limitations General appearance: alert, in no apparent distress Head exam: Present: atraumatic, normocephalic, normal inspection Eye exam: Present: normal appearance, PERRL, EOMI. Absent: scleral icterus, con junctival injection, periorbital swelling ENT exam: Present: normal exam, mucous membranes moist Neck exam: Present: normal inspection, full ROM. Absent: tenderness, meningismus, lymphadenopathy Respiratory exam: Present: normal lung sounds bilaterally. Absent: respiratory distress, wheezes, rales, rhonchi, stridor Cardiovascular Exam: Present: regular rate, normal rhythm, normal heart sounds. Absent: systolic murmur, diastolic murmur, rubs, gallop, clicks GI/Abdominal exam: Present: soft, normal bowel sounds. Absent: distended, tenderness, guarding, rebound, rigid Neurological exam: Present: alert Course Vital Signs 02/29/20 02/29/20 02/29/20 11:23 12:07 12:09 Temperature 101.4 F H Pulse Rate 99 107 H Respiratory 20 18 20 Rate Blood Pressure 145/83 161/78 O2 Sat by Pulse 94 L 95 Oximetry 02/29/20 02/29/20 02/29/20 13:11 13:42 14:00 Temperature 101.2 F H Pulse Rate 90 Respiratory 18 Rate Blood Pressure 124/75 O2 Sat by Pulse 96 Oximetry 02/29/20 02/29/20 15:00 15:14 Temperature Pulse Rate 88 Respiratory 18 Rate Blood Pressure 113/68 O2 Sat by Pulse 95 94 L Oximetry Medical Decision Making - Medical Decision Making Vitals are stable. Patient is a 98-99% on room air when resting and 94% when ambulating. EKG does reveal atrial fibrillation which patient has a history of with a left bundle branch block. This was also reviewed by Dr. Wilder. CBC unremarkable. White blood cell count is normal at 5.4. CMP unremarkable. There is some dehydration. Lactic acid of 4.2 likely secondary to dehydration. Covid is positive. CTA shows peripheral and Bibasilar groundglass infiltrates correlate for atypical/Covid pneumonia. No embolus. Lactic acid repeated, improved to 1.9 after fluids. Patient is able to ambulate without satting. Patient was evaluated by Dr. Wilder. Given improvement in lactic and good oxygen levels patient will be discharged home with diagnosis of Covid. Pneumonia likely viral, no white blood cell count. Patient will not be given antibiotics at this time. He will be given a dose of Decadron. Patient is agreeable to this plan. He states he can quarantine at home and that his daughter can help him. I discussed strict return parameters. Patient is agreeable to returning. Discussed with patients daughter who is agreeable to discahrge and returning for worsening symptoms. - Lab Data Result diagrams: 02/29/20 12:13 02/29/20 12:13 Lab Results 02/29/20 02/29/20 02/29/20 Range/Units 12:13 12:13 12:13 WBC 5.4 (3.8-10.6) k/uL RBC 5.33 (4.30-5.90) m/uL Hgb 14.0 (13.0-17.5) gm/dL Hct 44.1 (39.0-53.0) % MCV 82.7 (80.0-100.0) fL MCH 26.4 (25.0-35.0) pg MCHC 31.9 (31.0-37.0) g/dL RDW 14.9 (11.5-15.5) % Plt Count 210 (150-450) k/uL MPV 8.3 Neutrophils % 81 % Lymphocytes % 12 % Monocytes % 3 % Eosinophils % 0 % Basophils % 1 % Neutrophils # 4.3 (1.3-7.7) k/uL Lymphocytes # 0.6 L (1.0-4.8) k/uL Monocytes # 0.2 (0-1.0) k/uL Eosinophils # 0.0 (0-0.7) k/uL Basophils # 0.1 (0-0.2) k/uL Hypochromasia Moderate PT 9.9 (9.0-12.0) sec INR 0.9 (<1.2) APTT 33.6 H (22.0-30.0) sec D-Dimer 1.11 H (<0.60) mg/L FEU Sodium 143 (137-145) mmol/L Potassium 4.5 (3.5-5.1) mmol/L Chloride 105 (98-107) mmol/L Carbon Dioxide 25 (22-30) mmol/L Anion Gap 13 mmol/L BUN 24 H (9-20) mg/dL Creatinine 1.17 (0.66-1.25) mg/dL Est GFR (CKD-EPI)AfAm 64 (>60 ml/min/1.73 sqM) Est GFR (CKD-EPI)NonAf 55 (>60 ml/min/1.73 sqM) Glucose 172 H (74-99) mg/dL Lactic Ac Sepsis Rflx Plasma Lactic Acid Elder (0.7-2.0) mmol/L Calcium 9.3 (8.4-10.2) mg/dL Total Bilirubin 0.9 (0.2-1.3) mg/dL AST 82 H (17-59) U/L ALT 23 (4-49) U/L Alkaline Phosphatase 94 (38-126) U/L Troponin I (0.000-0.034) ng/mL Total Protein 7.9 (6.3-8.2) g/dL Albumin 4.2 (3.5-5.0) g/dL Coronavirus (PCR) (Not Detectd) Influenza Type A RNA (Not Detectd) Influenza Type B (PCR) (Not Detectd) 02/29/20 02/29/20 02/29/20 Range/Units 12:13 12:13 12:13 WBC (3.8-10.6) k/uL RBC (4.30-5.90) m/uL Hgb (13.0-17.5) gm/dL Hct (39.0-53.0) % MCV (80.0-100.0) fL MCH (25.0-35.0) pg MCHC (31.0-37.0) g/dL RDW (11.5-15.5) % Plt Count (150-450) k/uL MPV Neutrophils % % Lymphocytes % % Monocytes % % Eosinophils % % Basophils % % Neutrophils # (1.3-7.7) k/uL Lymphocytes # (1.0-4.8) k/uL Monocytes # (0-1.0) k/uL Eosinophils # (0-0.7) k/uL Basophils # (0-0.2) k/uL Hypochromasia PT (9.0-12.0) sec INR (<1.2) APTT (22.0-30.0) sec D-Dimer (<0.60) mg/L FEU Sodium (137-145) mmol/L Potassium (3.5-5.1) mmol/L Chloride (98-107) mmol/L Carbon Dioxide (22-30) mmol/L Anion Gap mmol/L BUN (9-20) mg/dL Creatinine (0.66-1.25) mg/dL Est GFR (CKD-EPI)AfAm (>60 ml/min/1.73 sqM) Est GFR (CKD-EPI)NonAf (>60 ml/min/1.73 sqM) Glucose (74-99) mg/dL Lactic Ac Sepsis Rflx Plasma Lactic Acid Elder 4.2 H* (0.7-2.0) mmol/L Calcium (8.4-10.2) mg/dL Total Bilirubin (0.2-1.3) mg/dL AST (17-59) U/L ALT (4-49) U/L Alkaline Phosphatase (38-126) U/L Troponin I 0.024 (0.000-0.034) ng/mL Total Protein (6.3-8.2) g/dL Albumin (3.5-5.0) g/dL Coronavirus (PCR) (Not Detectd) Influenza Type A RNA Not Detected (Not Detectd) Influenza Type B (PCR) Not Detected (Not Detectd) 02/29/20 02/29/20 02/29/20 Range/Units 12:48 13:35 15:10 WBC (3.8-10.6) k/uL RBC (4.30-5.90) m/uL Hgb (13.0-17.5) gm/dL Hct (39.0-53.0) % MCV (80.0-100.0) fL MCH (25.0-35.0) pg MCHC (31.0-37.0) g/dL RDW (11.5-15.5) % Plt Count (150-450) k/uL MPV Neutrophils % % Lymphocytes % % Monocytes % % Eosinophils % % Basophils % % Neutrophils # (1.3-7.7) k/uL Lymphocytes # (1.0-4.8) k/uL Monocytes # (0-1.0) k/uL Eosinophils # (0-0.7) k/uL Basophils # (0-0.2) k/uL Hypochromasia PT (9.0-12.0) sec INR (<1.2) APTT (22.0-30.0) sec D-Dimer (<0.60) mg/L FEU Sodium (137-145) mmol/L Potassium (3.5-5.1) mmol/L Chloride (98-107) mmol/L Carbon Dioxide (22-30) mmol/L Anion Gap mmol/L BUN (9-20) mg/dL Creatinine (0.66-1.25) mg/dL Est GFR (CKD-EPI)AfAm (>60 ml/min/1.73 sqM) Est GFR (CKD-EPI)NonAf (>60 ml/min/1.73 sqM) Glucose (74-99) mg/dL Lactic Ac Sepsis Rflx Y Plasma Lactic Acid Elder 1.9 (0.7-2.0) mmol/L Calcium (8.4-10.2) mg/dL Total Bilirubin (0.2-1.3) mg/dL AST (17-59) U/L ALT (4-49) U/L Alkaline Phosphatase (38-126) U/L Troponin I (0.000-0.034) ng/mL Total Protein (6.3-8.2) g/dL Albumin (3.5-5.0) g/dL Coronavirus (PCR) Detected A (Not Detectd) Influenza Type A RNA (Not Detectd) Influenza Type B (PCR) (Not Detectd) Disposition Clinical Impression: COVID-19 Disposition: HOME SELF-CARE Condition: Good Instructions (If sedation given, give patient instructions): Upper Respiratory Infection (ED) Additional Instructions: Please take Tylenol for fever. You may take this every 6 hours. Please drink plenty of fluids. If you start to get shortness of breath or any other worsening symptoms you need to return to the emergency room. Prescriptions: Benzonatate [Tessalon Perles] 200 mg PO Q8H PRN #15 capsule PRN Reason: Cough Is patient prescribed a controlled substance at d/c from ED?: No Referrals: Tyson Espinoza MD [Primary Care Provider] - 1-2 days Time of Disposition: 15:55
[2020-02-29 14:09] VITALS: RESP 18
--- NOTE | 2020-02-29 14:26 | CT ---
EXAMINATION TYPE: CT chest angio for PE DATE OF EXAM: 02/29/2020 COMPARISON: Radiograph same day HISTORY: 89-year-old male Weakness, cough TECHNIQUE: Contiguous axial scanning of the chest performed with IV Contrast, patient injected with 1 00 ml mL of Isovue 370. Coronal/sagittal MIP reconstructions performed. CT DLP: 257.1 mGycm Automated exposure control for dose reduction was used. FINDINGS: The heart is borderline enlarged without pericardial effusion. No reflux of contrast into the hepatic veins. Three-vessel coronary artery calcifications are present. Mild atherosclerotic arch calcifications and conventional arch vessel branching anatomy. Ectatic uppe r descending thoracic aorta at 3.1 cm. Satisfactory opacification of the pulmonary arterial system. Scattered prominent breathing motion art ifacts. No large central or lobar branch embolus. No definite segmental embolus in the upper or mid l ungs. Segmental and more distal arterial branches in the lower lungs are nondiagnostic. Mildly enlarg ed caliber to the main right and left pulmonary arteries measuring up to 2.6 cm suggest underlying pu lmonary hypertension. Scattered nonenlarged and mildly enlarged mediastinal lymph nodes measuring up to 1.1 cm in the right paratracheal region and 1.5 cm in the subcarinal region should be reassessed at follow-up are probab ly reactive. Moderate centrilobular emphysema. Confluent peripheral and basilar groundglass opacities. No pleural effusion. Visualized upper abdomen shows no gross abnormality. Bones: No osseous destructive process. IMPRESSION: 1. CONFLUENT PERIPHERAL AND BASILAR GROUNDGLASS INFILTRATES. 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 2. BREATHING MOTION AT THE LUNG BASES. NO DEFINITE EMBOLUS IN THE UPPER OR MID LUNGS. SEGMENTAL AND M ORE DISTAL ARTERIAL BRANCHES IN THE LOWER LUNGS ARE NONDIAGNOSTIC AND EMBOLI HERE CANNOT BE EXCLUDED ON THE BASIS OF THIS EXAM. 3. MILDLY ENLARGED RIGHT PARATRACHEAL AND SUBCARINAL LYMPH NODES MEASURING UP TO 1.5 CM PROBABLY REAC TIVE. REASSESS IN 3-6 MONTHS TO ENSURE STABILITY/RESOLUTION.
[2020-02-29 15:15] VITALS: BP 113/68; PULSE 88
[2020-02-29] MEDS ORDERED: DEXAMETHASONE SOD PHOSPHATE 10 MG/ML 1 ML VIAL IV STA (15:56)
[2020-02-29 16:28] VITALS: TEMP 97.9
== END 2020-02-29 16:28 | disposition home or self-care (01) ==
LOC: EC 11:18
DX: U07.1 COVID-19 (principal); I48.91 Unspecified atrial fibrillation; E86.0 Dehydration; R91.8 Other nonspecific abnormal finding of lung field; I10 Essential (primary) hypertension; E78.5 Hyperlipidemia, unspecified; Z79.899 Other long term (current) drug therapy; Z79.01 Long term (current) use of anticoagulants; Z87.891 Personal history of nicotine dependence
CPT/HCPCS: 36415; 93005; 85379; 80053; 83605; 84484; 85025; 85610; 85730; 87040; 87502; 87635; 71046; 71275; 99285; 96374; 96375; 96361 ×3; J1100; J0696; Q9967

== ENCOUNTER 2020-03-01 21:20 | Inpatient (IN) | payer MEDICARE ==
[2020-03-01] MEDS ORDERED: ACETAMINOPHEN TAB 500 MG TAB PO STA (21:43)
[2020-03-01] MEDS ORDERED: ALBUTEROL HFA INHALER INHALATION STA (21:43)
--- NOTE | 2020-03-01 22:02 | XR ---
EXAMINATION TYPE: XR chest 1V portable DATE OF EXAM: 03/01/2020 COMPARISON: 02/29/2020 HISTORY: Short of breath. TECHNIQUE: FINDINGS: Heart is slightly enlarged. There is patchy moderate bilateral pulmonary airspace infiltrat es. There are no definite hilar masses. There is no pleural effusion. IMPRESSION: Bilateral pulmonary infiltrates increased compared to exam earlier today.
[2020-03-01 22:11] LABS: Basophils # (A) 0.1 k/uL (0-0.2); Basophils % (A) 1 %; Eosinophils # (A) 0.1 k/uL (0-0.7); Eosinophils % (A) 0 %; HCT 39.4 % (39.0-53.0); HGB 12.6 gm/dL (13.0-17.5); Hypochromasia Moderate; Lymphocytes # (A) 0.7 k/uL (1.0-4.8); Lymphocytes % (A) 5 %; MCH 26.3 pg (25.0-35.0); MCHC 31.9 g/dL (31.0-37.0); MCV 82.4 fL (80.0-100.0); Monocytes # (A) 0.4 k/uL (0-1.0); Monocytes % (A) 3 %; Neutrophils # (A) 11.8 k/uL (1.3-7.7); Neutrophils % (A) 89 %; Platelet Count 193 k/uL (150-450); RBC 4.78 m/uL (4.30-5.90); RDW 15.2 % (11.5-15.5); WBC 13.4 k/uL (3.8-10.6)
[2020-03-01] MEDS ORDERED: dexAMETHasone 2 MG TAB PO STA (22:18)
[2020-03-01 22:19] LABS: Partial Thromboplastin Time 22.2 sec (22.0-30.0); Prothrombin Time 10.1 sec (9.0-12.0)
[2020-03-01 22:27] LABS: Albumin 3.6 g/dL (3.5-5.0); Magnesium 2.1 mg/dL (1.6-2.3); Potassium 4.5 mmol/L (3.5-5.1); Total Bilirubin 0.7 mg/dL (0.2-1.3)
[2020-03-01] MEDS ORDERED: SODIUM CHLORIDE 0.9% 500 ML 500 ML IV ONE (22:46)
[2020-03-01] MEDS ORDERED: ENOXAPARIN 40 MG/0.4 ML SYRINGE SQ STA (23:16)
[2020-03-02] MEDS ORDERED: NALOXONE 0.4 MG/ML 1 ML VIAL IV PRN (00:28)
[2020-03-02] MEDS ORDERED: ACETAMINOPHEN TAB 325 MG TAB PO PRN (00:28)
--- NOTE | 2020-03-02 01:34 | ED ---
General Adult HPI - General Chief complaint: Shortness of Breath Stated complaint: Revist, COVID+,SOB Time Seen by Provider: 03/01/20 21:33 Source: patient, RN notes reviewed, old records reviewed Mode of arrival: wheelchair Limitations: no limitations - History of Present Illness Initial comments: 89-year-old male patient is atrial fibrillation tested positive for covid yesterday to ED with worsening breathing fevers. Denies any other complaints. Systemic: Pt denies fatigue, rash. Pt denies weakness, night sweats, weight loss. Neuro: Pt denies headache, visual disturbances, syncope or pre-syncope. HEENT: Pt denies ocular discharge or irritation, otalgia, rhinorrhea, pharyngitis or notable lymphadenopathy. Cardiopulmonary: Pt denies chest pain, heart palpitations, dyspnea on exertion. Abdominal/GI: Pt denies abdominal pain, n/v/d. : Pt denies dysuria, burning w/ urination, frequency/urgency. Denies new onset urinary or bowel incontinence. MSK: Pt denies myalgia, loss of strength or function in extremities. Neuro: Pt denies new onset weakness, paresthesias. - Related Data Home Medications Medication Instructions Recorded Confirmed Multivitamins, Thera [Multivitamin 1 tab PO HS 12/30/16 03/01/20 (formulary)] Simvastatin [Zocor] 20 mg PO HS 12/30/16 03/01/20 Metoprolol Succinate (ER) [Toprol 100 mg PO HS 11/06/18 03/01/20 XL] Rivaroxaban [Xarelto] 15 mg PO HS 11/06/18 03/01/20 Ketorolac 0.5% Ophth Soln [Acular] 1 drops LEFT EYE BID 03/01/20 03/01/20 Loteprednol Etabonate [Inveltys] 1 drop LEFT EYE BID 03/01/20 03/01/20 Ofloxacin 0.3% Ophth Soln [Ocuflox 1 drops LEFT EYE BID 03/01/20 03/01/20 Ophth Soln] Allergies Allergy/AdvReac Type Severity Reaction Status Date / Time No Known Allergies Allergy Verified 03/01/20 22:39 Review of Systems ROS Statement: Those systems with pertinent positive or pertinent negative responses have been documented in the HPI. ROS Other: All systems not noted in ROS Statement are negative. Past Medical History Past Medical History: Atrial Fibrillation, Hyperlipidemia, Hypertension History of Any Multi-Drug Resistant Organisms: None Reported Past Surgical History: Orthopedic Surgery Additional Past Surgical History / Comment(s): right knee x2 knee scopes, blepharoplasty right eye, cataracts Past Anesthesia/Blood Transfusion Reactions: No Reported Reaction Past Psychological History: No Psychological Hx Reported Smoking Status: Former smoker Past Alcohol Use History: Occasional Past Drug Use History: None Reported - Past Family History Mother Family Medical History: Coronary Artery Disease (CAD) Father Family Medical History: Coronary Artery Disease (CAD) Brother(s) Family Medical History: Cancer, Neurologic Disorder Additional Family Medical History / Comment(s): Parkinson's Son(s) Family Medical History: Diabetes Mellitus General Exam - General Exam Comments Initial Comments: Constitutional: NAD, AOX3, Pt has pleasant affect. HEENT: NC/AT, trachea midline, neck supple, no lymphadenopathy. External ears appear normal, without discharge. Mucous membranes moist. Eyes PERRLA, EOM intac t. There is no scleral icterus. No pallor noted. Cardiopulmonary: RRR, no murmurs, rubs or gallops, no JVD noted. Bilateral rales are noted. No peripheral edema. Abdominal exam: Abdomen soft and non-distended. Abdomen non-tender to palpation in all 4 quadrants. Bowel sounds active in LLQ. No hepatosplenomegaly. No ecchymosis Neuro: CN II-XII grossly intact. No nuchal rigidity. MSK: Full active ROM in upper and lower extremities, 5/5 stregnth. Limitations: no limitations Course Vital Signs 03/01/20 03/01/20 03/02/20 21:23 21:44 00:04 Temperature 101.7 F H Pulse Rate 94 92 Respiratory 28 H 22 22 Rate Blood Pressure 161/81 115/65 O2 Sat by Pulse 85 L 97 Oximetry 03/02/20 03/02/20 00:27 02:00 Temperature 98.9 F 97.9 F Pulse Rate 88 76 Respiratory 16 16 Rate Blood Pressure 115/57 119/86 O2 Sat by Pulse 98 98 Oximetry Medical Decision Making - Medical Decision Making 81-year-old male patient Covid positive to ED for worsening respiratory status. Patient initial vital signs 85% on room air. Afebrile. Patient administered antipyretics. Placed on supplemental oxygen. He is resting comfortably satting at 95%. Laboratoryt Investigations reveal leukocytosis, elevated inflammatory markers, history displayed worsening pneumonia, EKG is unchanged from prior. Patient initiated on steroids, will be admitted further evaluation. Case discussed with Dr. Márquez. - Lab Data Result diagrams: 03/01/20 21:50 03/01/20 21:50 Lab Results 03/01/20 03/01/20 03/01/20 Range/Units 21:50 21:50 21:50 WBC 13.4 H (3.8-10.6) k/uL RBC 4.78 (4.30-5.90) m/uL Hgb 12.6 L (13.0-17.5) gm/dL Hct 39.4 (39.0-53.0) % MCV 82.4 (80.0-100.0) fL MCH 26.3 (25.0-35.0) pg MCHC 31.9 (31.0-37.0) g/dL RDW 15.2 (11.5-15.5) % Plt Count 193 (150-450) k/uL MPV 9.0 Neutrophils % 89 % Lymphocytes % 5 % Monocytes % 3 % Eosinophils % 0 % Basophils % 1 % Neutrophils # 11.8 H (1.3-7.7) k/uL Lymphocytes # 0.7 L (1.0-4.8) k/uL Monocytes # 0.4 (0-1.0) k/uL Eosinophils # 0.1 (0-0.7) k/uL Basophils # 0.1 (0-0.2) k/uL Hypochromasia Moderate PT 10.1 (9.0-12.0) sec INR 1.0 (<1.2) APTT 22.2 (22.0-30.0) sec Sodium 143 (137-145) mmol/L Potassium 4.5 (3.5-5.1) mmol/L Chloride 112 H (98-107) mmol/L Carbon Dioxide 20 L (22-30) mmol/L Anion Gap 11 mmol/L BUN 27 H (9-20) mg/dL Creatinine 1.23 (0.66-1.25) mg/dL Est GFR (CKD-EPI)AfAm 61 (>60 ml/min/1.73 sqM) Est GFR (CKD-EPI)NonAf 52 (>60 ml/min/1.73 sqM) Glucose 176 H (74-99) mg/dL Plasma Lactic Acid Elder (0.7-2.0) mmol/L Calcium 9.0 (8.4-10.2) mg/dL Magnesium 2.1 (1.6-2.3) mg/dL Total Bilirubin 0.7 (0.2-1.3) mg/dL AST 95 H (17-59) U/L ALT 22 (4-49) U/L Alkaline Phosphatase 86 (38-126) U/L Lactate Dehydrogenase 2012 H (313-618) U/L C-Reactive Protein 57.0 H (<10.0) mg/L Total Protein 7.0 (6.3-8.2) g/dL Albumin 3.6 (3.5-5.0) g/dL 03/01/20 Range/Units 21:50 WBC (3.8-10.6) k/uL RBC (4.30-5.90) m/uL Hgb (13.0-17.5) gm/dL Hct (39.0-53.0) % MCV (80.0-100.0) fL MCH (25.0-35.0) pg MCHC (31.0-37.0) g/dL RDW (11.5-15.5) % Plt Count (150-450) k/uL MPV Neutrophils % % Lymphocytes % % Monocytes % % Eosinophils % % Basophils % % Neutrophils # (1.3-7.7) k/uL Lymphocytes # (1.0-4.8) k/uL Monocytes # (0-1.0) k/uL Eosinophils # (0-0.7) k/uL Basophils # (0-0.2) k/uL Hypochromasia PT (9.0-12.0) sec INR (<1.2) APTT (22.0-30.0) sec Sodium (137-145) mmol/L Potassium (3.5-5.1) mmol/L Chloride (98-107) mmol/L Carbon Dioxide (22-30) mmol/L Anion Gap mmol/L BUN (9-20) mg/dL Creatinine (0.66-1.25) mg/dL Est GFR (CKD-EPI)AfAm (>60 ml/min/1.73 sqM) Est GFR (CKD-EPI)NonAf (>60 ml/min/1.73 sqM) Glucose (74-99) mg/dL Plasma Lactic Acid Elder 3.2 H* (0.7-2.0) mmol/L Calcium (8.4-10.2) mg/dL Magnesium (1.6-2.3) mg/dL Total Bilirubin (0.2-1.3) mg/dL AST (17-59) U/L ALT (4-49) U/L Alkaline Phosphatase (38-126) U/L Lactate Dehydrogenase (313-618) U/L C-Reactive Protein (<10.0) mg/L Total Protein (6.3-8.2) g/dL Albumin (3.5-5.0) g/dL - EKG Data -: EKG Interpreted by Me (and Dr. Márquez ) EKG Comments: Ventricular rate 89, QRS 142, QT/QTc 420/511. Atrial fibrillation with LBBB. No significant change from prior. Disposition Clinical Impression: COVID-19 Disposition: ADMITTED IP TO THIS HOSP Condition: Serious Is patient prescribed a controlled substance at d/c from ED?: No
[2020-03-02 09:57] LABS: Ferritin 528.9 ng/mL (22.0-322.0)
[2020-03-02] MEDS: NON FORMULARY DRUG (Loteprednol Etabonate [Inveltys] 2.8 ML Drops.Susp) LEFT EYE SCH ×2 (11:09→20:37)
[2020-03-02] MEDS: dexAMETHasone 2 MG TAB PO SCH (11:17)
[2020-03-02] MEDS: ASCORBIC ACID 500 MG TAB PO SCH (11:17)
[2020-03-02] MEDS: CHOLECALCIFEROL 1,000 UNIT TAB PO SCH (11:17)
[2020-03-02] MEDS: ZINC SULFATE 220 MG CAP PO SCH (11:17)
[2020-03-02] MEDS: FAMOTIDINE 20 MG TAB PO SCH (11:17)
[2020-03-02] MEDS: KETOROLAC 0.5% OPHTH DROPS 5 ML BTL LEFT EYE SCH ×2 (11:18→20:36)
[2020-03-02] MEDS: OFLOXACIN 0.3% OPHTH DROPS 5 ML BOTTLE LEFT EYE SCH ×2 (11:18→20:36)
[2020-03-02] MEDS: INSULIN ASPART (NovoLOG) 100 UNIT/ML VIAL SQ SCH ×3 (13:28→22:18)
--- NOTE | 2020-03-02 14:11 | P.HPIM ---
History of Present Illness H&P Date: 03/02/20 HISTORY OF PRESENT ILLNESS This is an 89-year-old female patient of Dr. Espinoza with past medical history of chronic atrial fibrillation on Xarelto, hyperlipidemia, remote history of tobacco use. Patient developed shortness of breath for several days with increased cough with deep breathing, no shortness of breath and presented initially to the emergency center on February 28. At that time, he had a fever of 101.4, pulse ox 98-99%, 94% with ambulation. CTA of the chest revealed peripheral and bibasilar groundglass infiltrates correlate for atypical or Covid pneumonia. No pulmonary embolus. Initial lactic acid 8.2 and repeat 1.9 after fluids.Influenza A and B testing was negative and Covid 19 was detected. Covid 19 testing was performed at [facility] on February 28 with positive result. Patient was instructed to take Tylenol for fever drink plenty of fluids, prescription for Tessalon Perles was provided and patient was discharged home. Patient returned last evening with increasing shortness of breath, nonproductive cough and continued fevers. Again patient had fever of 101.7, heart rate 94, respiratory rate 28, blood pressure 161/81. Pulse ox 85% on room air. WBC 13.4, hemoglobin 12.6. CO2 20, BUN 27 creatinine 1.23. Blood sugar 176. LDH 2012, C-reactive protein 57. Lactic acid 3.2. EKG was atrial fibrillation with left bundle branch block, rate of 89. Repeat chest x-ray r eveals bilateral pulmonary infiltrates increased compared to earlier exam. [facility], started on dexamethasone, vitamin D, vitamin C, zinc, continued on Xarelto, consult with pulmonary medicine. Echocardiogram in November 2018 revealed EF of 55-60% with moderate concentric left ventricular hypertrophy, moderate aortic valve sclerosis without stenosis, mild mitral regurgitation, [id number] tricuspid regurgitation, severe pulmonary hypertension. Patient is seen today in the emergency center. REVIEW OF SYSTEMS Constitutional: Reports fever, Reports chills, Reports night sweats. No weight change. Reports weakness, fatigue or lethargy. No daytime sleepiness. EENT: No headache. No blurred vision or double vision, no loss of vision. No loss of Hearing, no ringing in the ears, no dizziness. No nasal drainage or congestion. No epistaxis. No sore throat. Lungs: Reports shortness of breath, Reportscough, no sputum production. No wheezing. Cardiovascular: No chest pain, no lower extremity edema. No palpitations. No paroxysmal nocturnal dyspnea. No orthopnea. No lightheadedness or dizziness. No syncopal episodes. Abdominal: No abdominal pain. No nausea, vomiting. No diarrhea. No constipation. No bloody or tarry stools.. No loss of appetite. Genitourinary: No dysuria, increased frequency, urgency. No urinary retention. Musculoskeletal: No myalgias. No muscle weakness, no gait dysfunction, no frequent falls. No back pain. No neck pain. Integumentary: No wounds, no lesions. No rash or pruritus. No unusual bruising. No change in hair or nails. Neurologic: No aphasia. No facial droop. No change in mentation. No head injury. No headache. No paralysis. No paresthesia. Psychiatric: No depression. No anxiety. No mood swings. Endocrine: No abnormal blood sugars. No weight change. No excessive sweating or thirst. No cold intolerance. SOCIAL HISTORY Patient was a smoker and quit in 195. He denies any medical marijuana or street drug use. 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 He lives at home with his and he is her caregiver as she has been diagnosed with dementia. FAMILY HISTORY Mother at age 75 from myocardial infarction. Father at age 65 from a myocardial infarction. Patient has 2 brothers who both from myocardial infarction. He does not have any sisters. Patient has 2 children one son has been diagnosed with Covid. PHYSICAL EXAMINATION Gen: This is an 89-year-old male. Patient is resting in the ER stretcher. Mild dyspnea and frequent coughing noted. HEENT: Head is atraumatic, normocephalic. Pupils equal, round. Sclerae is anicteric. NECK: Supple. No JVD. No lymphadenopathy. No thyromegaly. LUNGS: Bilateral crackles, no wheezes. No intercostal retractions. HEART: Regular rate and rhythm. No murmur. ABDOMEN: Soft. Bowel sounds are present. No masses. No tenderness. EXTREMITIES: No pedal edema. No calf tenderness. NEUROLOGICAL: Patient is awake, alert and oriented x3. Cranial nerves 2 through 12 are grossly intact. ASSESSMENT AND PLAN 1. COVID-19 pneumonia. Continue dexamethasone, vitamin D, vitamin C, zinc, Xarelto, consult with pulmonary medicine for possible Remdesivir. 2. Lactic acidosis secondary to Covid 19 pneumonia, improved status post fluids. 3. Hyperglycemia appears to be prior to steroids, NovoLog scale and check hemoglobin A1c. 4. Hypertension. Continue Toprol-XL. 5. Chronic atrial fibrillation rate controlled. Continue Xarelto and Toprol-XL 100 mg at bedtime. 6. 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 7. Hyperlipidemia. Continue simvastatin 20 mg at bedtime. 8. History of right knee effusion, stable. 9. DVT prophylaxis. Xarelto 10. GI prophylaxis. Pepcid 20 mg daily. Patient will be admitted to the hospital for a minimum of 2 night stay. DISCHARGE PLAN To be determined. Most likely return home. Impression and plan of care have been directed as dictated by the signing physician. Brianna Clay nurse practitioner acting as scribe for signing physician. Past Medical History Past Medical History: Atrial Fibrillation, Hyperlipidemia, Hypertension History of Any Multi-Drug Resistant Organisms: None Reported Past Surgical History: Orthopedic Surgery Additional Past Surgical History / Comment(s): right knee x2 knee scopes, blepharoplasty right eye, cataracts Past Anesthesia/Blood Transfusion Reactions: No Reported Reaction Past Psychological History: No Psychological Hx Reported Smoking Status: Former smoker Past Alcohol Use History: Occasional Past Drug Use History: None Reported - Past Family History Mother Family Medical History: Coronary Artery Disease (CAD) Father Family Medical History: Coronary Artery Disease (CAD) Brother(s) Family Medical History: Cancer, Neurologic Disorder Additional Family Medical History / Comment(s): Parkinson's Son(s) Family Medical History: Diabetes Mellitus Medications and Allergies Home Medications Medication Instructions Recorded Confirmed Type Multivitamins, Thera [Multivitamin 1 tab PO HS 12/30/16 03/01/20 History (formulary)] Simvastatin [Zocor] 20 mg PO HS 12/30/16 03/01/20 History Metoprolol Succinate (ER) [Toprol 100 mg PO HS 11/06/18 03/01/20 History XL] Rivaroxaban [Xarelto] 15 mg PO HS 08/01/19 11/24/20 History Ketorolac 0.5% Ophth Soln [Acular] 1 drops LEFT EYE BID 03/01/20 03/01/20 History Loteprednol Etabonate [Inveltys] 1 drop LEFT EYE BID 03/01/20 03/01/20 History Ofloxacin 0.3% Ophth Soln [Ocuflox 1 drops LEFT EYE BID 03/01/20 03/01/20 History Ophth Soln] Allergies Allergy/AdvReac Type Severity Reaction Status Date / Time No Known Allergies Allergy Verified 03/01/20 22:39 Physical Exam Vitals: Vital Signs Temp Pulse Pulse Resp BP BP Pulse Ox 03/02/20 04:00 97.1 F L 71 20 117/71 98 03/02/20 02:00 97.9 F 76 16 119/86 98 03/02/20 00:27 98.9 F 88 16 115/57 98 03/02/20 00:04 92 22 115/65 97 03/01/20 21:44 22 03/01/20 21:23 101.7 F H 94 28 H 161/81 85 L Intake and Output 03/01/20 03/02/20 03/02/20 22:59 06:59 14:59 Other: Voiding Method Toilet Urinal Weight 77.111 kg 77.111 kg Results CBC & Chem 7: 03/01/20 21:50 03/01/20 21:50 Labs: Abnormal Lab Results - Last 24 Hours (Table) 03/01/20 03/01/20 03/01/20 Range/Units 21:50 21:50 21:50 WBC 13.4 H (3.8-10.6) k/uL Hgb 12.6 L (13.0-17.5) gm/dL Neutrophils # 11.8 H (1.3-7.7) k/uL Lymphocytes # 0.7 L (1.0-4.8) k/uL Chloride 112 H (98-107) mmol/L Carbon Dioxide 20 L (22-30) mmol/L BUN 27 H (9-20) mg/dL Glucose 176 H (74-99) mg/dL Plasma Lactic Acid Elder 3.2 H* (0.7-2.0) mmol/L AST 95 H (17-59) U/L Lactate Dehydrogenase 2012 H (313-618) U/L C-Reactive Protein 57.0 H (<10.0) mg/L Thrombosis Risk Factor Assmnt - Choose All That Apply Each Risk Factor Represents 3 Points: Age 75 years or older Thrombosis Risk Factor Assessment Total Risk Factor Score: 3 Thrombosis Risk Factor Assessment Level: Moderate Risk
--- NOTE | 2020-03-02 17:52 | P.CNPUL ---
History of Present Illness Consult date: 03/02/20 Requesting physician: Bethel Colindres Reason for consult: pneumonia Chief complaint: Cough and shortness of breath History of present illness: This is an 89-year-old white male, known history of chronic atrial fibrillation, maintained on Xarelto, history of dyslipidemia, remote smoking history, patient was brought into the ER with almost 7 days history of increased shortness of breath, cough, and fever he had a temp as high as 101.4. CT of the chest showed peripheral and by basilar groundglass infiltrates consistent with gloria pneumonia/"covid 19 pneumonitis. PCR tested positive on 02/29/20. While in the ER, patient required high flow nasal cannula, and patient will be admitted, will asked to see him on consultation. Evaluated the patient in the ER, and we will arrange for the patient to start on remdesivir. Patient was also placed by the admitting physician on the Covid 19 cocktail treatment. Patient denies any chest pain, denies any hemoptysis, denies any nausea vomiting abdominal pain melena or hematemesis. Review of Systems Constitutional: Fevers chills, weakness, fatigue EENT: No headache. No blurred vision no dizziness. Lungs: As noted in HPI, mostly cough and shortness of breath. Cardiovascular: No chest pain, no orthopnea, no PND.. Abdominal: Denies nausea vomiting abdominal pain melena or hematemesis. Genitourinary: Denied dysuria hematuria or frequency or urgency. Musculoskeletal: Vague aches and pains. Integumentary: Denies any rashes, denies any pruritus. Neurologic: Negative. Psychiatric: Has any symptoms of depression. Endocrine: Denies heat or cold intolerance. Past Medical History Past Medical History: Atrial Fibrillation, Hyperlipidemia, Hypertension History of Any Multi-Drug Resistant Organisms: None Reported Past Surgical History: Orthopedic Surgery Additional Past Surgical History / Comment(s): right knee x2 knee scopes, blepharoplasty right eye, cataracts Past Anesthesia/Blood Transfusion Reactions: No Reported Reaction Past Psychological History: No Psychological Hx Reported Smoking Status: Former smoker Past Alcohol Use History: Occasional Past Drug Use History: None Reported - Past Family History Mother Family Medical History: Coronary Artery Disease (CAD) Father Family Medical History: Coronary Artery Disease (CAD) Brother(s) Family Medical History: Cancer, Neurologic Disorder Additional Family Medical History / Comment(s): Parkinson's Son(s) Family Medical History: Diabetes Mellitus Medications and Allergies Home Medications Medication Instructions Recorded Confirmed Type Multivitamins, Thera [Multivitamin 1 tab PO HS 12/30/16 03/01/20 History (formulary)] Simvastatin [Zocor] 20 mg PO HS 12/30/16 03/01/20 History Metoprolol Succinate (ER) [Toprol 100 mg PO HS 11/06/18 03/01/20 History XL] Rivaroxaban [Xarelto] 15 mg PO HS 11/06/18 03/01/20 History Ketorolac 0.5% Ophth Soln [Acular] 1 drops LEFT EYE BID 03/01/20 03/01/20 History Loteprednol Etabonate [Inveltys] 1 drop LEFT EYE BID 03/01/20 03/01/20 History Ofloxacin 0.3% Ophth Soln [Ocuflox 1 drops LEFT EYE BID 03/01/20 03/01/20 History Ophth Soln] Allergies Allergy/AdvReac Type Severity Reaction Status Date / Time No Known Allergies Allergy Verified 03/01/20 22:39 Physical Exam Vitals: Vital Signs Temp Pulse Pulse Resp BP BP Pulse Ox 03/02/20 16:00 97.2 F L 111 H 115 H 25 H 165/100 88 L 03/02/20 12:00 80 92 H 140/103 92 L 03/02/20 08:00 97.6 F 89 22 132/86 03/02/20 04:00 97.1 F L 71 20 117/71 98 03/02/20 02:00 97.9 F 76 16 119/86 98 03/02/20 00:27 98.9 F 88 16 115/57 98 03/02/20 00:04 92 22 115/65 97 03/01/20 21:44 22 03/01/20 21:23 101.7 F H 94 28 H 161/81 85 L Intake and Output 03/02/20 03/02/20 03/02/20 06:59 14:59 22:59 Other: Voiding Method Toilet Toilet Urinal Urinal Weight 77.111 kg Physical Exam: Revealed a 89-year-old white male, in no distress, on 4 L nasal cannula during my evaluation. O2 saturation was 88%. Head: Atraumatic, normocephalic. HEENT:[There, EOMI, neck this, neck masses, no JVD. Chest: Symmetrical chest expansion, bilateral crackles noted, no wheezes, no chest wall tenderness. Cardiac Exam: Irregular irregular rhythm. [Normal S1 and S2, no S3 gallop, 2/6 systolic murmur thought the precordium. Abdomen: [Soft, nontender, no megaly, no rebound, no guarding, normal bowel sounds.] Extremities: [No clubbing, no edema, no cyanosis.] Good pulses bilaterally. Neurological Exam: [No focal neurologic deficit.] Alert and oriented 3. Psychiatric: Normal mood, affect and normal mental status examination. Skin: No rashes. Results - Laboratory Findings CBC and BMP: 03/01/20 21:50 03/01/20 21:50 PT/INR, D-dimer PT 10.1 sec (9.0-12.0) 03/01/20 21:50 INR 1.0 (<1.2) 03/01/20 21:50 Abnormal lab findings: Abnormal Labs 03/01/20 03/01/20 03/01/20 21:50 21:50 21:50 WBC 13.4 H Hgb 12.6 L Neutrophils # 11.8 H Lymphocytes # 0.7 L Chloride 112 H Carbon Dioxide 20 L BUN 27 H Glucose 176 H Plasma Lactic Acid Elder 3.2 H* Ferritin 528.9 H AST 95 H Lactate Dehydrogenase 2012 H C-Reactive Protein 57.0 H Procalcitonin 03/01/20 21:50 WBC Hgb Neutrophils # Lymphocytes # Chloride Carbon Dioxide BUN Glucose Plasma Lactic Acid Elder Ferritin AST Lactate Dehydrogenase C-Reactive Protein Procalcitonin 0.23 H - Diagnostic Findings Chest x-ray: image reviewed (As noted in HPI.) Assessment and Plan Assessment: Impression: Acute hypoxic respiratory failure secondary to covid 19 pneumonitis Chronic atrial fibrillation, rate controlled. History of valvular heart disease with [id number] tricuspid regurgitation and mild mitral regurgitation. Severe pulmonary hypertension. History of hypertension Recommendation: Continue present treatment plan We will arrange for the patient to be started on remdesivir Resume home meds. Titrate oxygen via high flow nasal cannula to maintain O2 saturation above 90%. Continue the Covid 19 cocktail treatment including Decadron, vitamin C, vitamin D, Pepcid, and zinc. We'll continue to follow. Considering the patient's age, patient clearly has a relatively high morbidity/mortality. Will follow. Patient was seen while in the ER. Time with Patient: Greater than 30
[2020-03-02] MEDS ORDERED: REMDESIVIR 200 MG in SODIUM CHLORIDE 0.9% 250 ML IVPB ONE (18:00)
[2020-03-02 19:01] LABS: Glucose,Whole Blood 252 mg/dL (75-99)
[2020-03-02] MEDS: ATORVASTATIN 10 MG TAB PO SCH (20:35)
[2020-03-02] MEDS: METOPROLOL SUCCINATE (ER) 100 MG TAB.ER.24H PO SCH (20:35)
[2020-03-02] MEDS: MULTIVITAMINS, THERA 1 EACH TAB PO SCH (20:35)
[2020-03-02 20:58] LABS: Glucose,Whole Blood 234 mg/dL (75-99)
[2020-03-02] MEDS ORDERED: hydrALAZINE HCL 10 MG TAB PO PRN (21:47)
[2020-03-02] MEDS ORDERED: ALPRAZolam 0.25 MG TAB PO STA (21:49)
[2020-03-02] MEDS: RIVAROXABAN 15 MG TAB PO SCH (22:18)
[2020-03-03] MEDS: NON FORMULARY DRUG (Loteprednol Etabonate [Inveltys] 2.8 ML Drops.Susp) LEFT EYE SCH ×2 (07:35→21:25)
[2020-03-03] MEDS: INSULIN ASPART (NovoLOG) 100 UNIT/ML VIAL SQ SCH ×4 (08:14→21:14)
[2020-03-03] MEDS: IPRATROPIUM-ALBUTEROL 3 ML NEB INHALATION SCH ×4 (08:21→19:20)
[2020-03-03] MEDS: BUDESONIDE 1 MG/2 ML NEBU INHALATION SCH ×2 (08:22→19:20)
[2020-03-03] MEDS: KETOROLAC 0.5% OPHTH DROPS 5 ML BTL LEFT EYE SCH ×2 (09:36→21:15)
[2020-03-03] MEDS: FAMOTIDINE 20 MG TAB PO SCH (09:36)
[2020-03-03] MEDS: dexAMETHasone 2 MG TAB PO SCH (09:36)
[2020-03-03] MEDS: ASCORBIC ACID 500 MG TAB PO SCH (09:36)
[2020-03-03] MEDS: ZINC SULFATE 220 MG CAP PO SCH (09:36)
[2020-03-03] MEDS: CHOLECALCIFEROL 1,000 UNIT TAB PO SCH (09:36)
[2020-03-03] MEDS: OFLOXACIN 0.3% OPHTH DROPS 5 ML BOTTLE LEFT EYE SCH ×2 (09:37→21:15)
[2020-03-03 12:00] LABS: Glucose,Whole Blood 196 mg/dL (75-99)
[2020-03-03 12:05] LABS: Hemoglobin A1C 7.9 % (4.0-6.0)
--- NOTE | 2020-03-03 15:25 | P.PN ---
Subjective Progress Note Date: 03/03/20 Principal diagnosis: CoVID 19 pneumonitis This is an 89-year-old white male, known history of chronic atrial fibrillation, maintained on Xarelto, history of dyslipidemia, remote smoking history, patient was brought into the ER with almost 7 days history of increased shortness of breath, cough, and fever he had a temp as high as 101.4. CT of the chest showed peripheral and by basilar groundglass infiltrates consistent with gloria pneumonia/"covid 19 pneumonitis. PCR tested positive on 02/29/20. While in the ER, patient required high flow nasal cannula, and patient will be admitted, will asked to see him on consultation. Evaluated the patient in the ER, and we will arrange for the patient to start on remdesivir. Patient was also placed by the admitting physician on the Covid 19 cocktail treatment. Patient denies any chest pain, denies any hemoptysis, denies any nausea vomiting abdominal pain melena or hematemesis. Patient is seen today 03/03/2020 in follow-up on the regular medical floor. He is currently seen up in a chair. Awake and alert in mild respiratory distress. Still somewhat dyspneic with minimal exertion. Requiring 12 L high flow nasal cannula to maintain O2 saturation in the mid 90s. He's been afebrile. Blood culture reveals no growth to date. Blood glucose 196. He was initiated on Remdesivir yesterday. Today is day #2. He is anticoagulated with Xarelto. Remains on vitamin supplements. Pepcid. Objective - Vital Signs Vital signs: Vital Signs Temp 97.1 F L 03/03/20 13:34 Pulse 95 03/03/20 13:34 Resp 18 03/03/20 13:34 BP 143/91 03/03/20 13:34 Pulse Ox 97 03/03/20 13:34 Intake & Output 03/02/20 03/03/20 03/03/20 18:59 06:59 18:59 Weight 73.3 kg Other: Voiding Method Toilet Toilet Toilet Urinal Urinal Urinal # Voids 1 1 - Exam GENERAL EXAM: Alert, frail 89-year-old gentleman, on 12 L high flow nasal cannula, fairly comfortable in mild respiratory distress. HEAD: Normocephalic. EYES: Normal reaction of pupils, equal size. NOSE: Clear with pink turbinates. THROAT: No erythema or exudates. NECK: No masses, no JVD. CHEST: No chest wall deformity. LUNGS: Equal air entry with bilateral scattered rhonchi CVS: S1 and S2 normal with no audible murmur, regular rhythm. ABDOMEN: No hepatosplenomegaly, normal bowel sounds, no guarding or rigidity. SPINE: No scoliosis or deformity SKIN: No rashes CENTRAL NERVOUS SYSTEM: No focal deficits, tone is normal in all 4 extremities. EXTREMITIES: There is no peripheral edema. No clubbing, no cyanosis. Peripheral pulses are intact. - Labs CBC & Chem 7: 03/01/20 21:50 03/01/20 21:50 Labs: Abnormal Lab Results - Last 24 Hours (Table) 03/02/20 03/02/20 03/03/20 Range/Units 18:59 20:56 06:57 POC Glucose (mg/dL) 252 H 234 H (75-99) mg/dL Hemoglobin A1c 7.9 H (4.0-6.0) % 03/03/20 Range/Units 11:58 POC Glucose (mg/dL) 196 H (75-99) mg/dL Hemoglobin A1c (4.0-6.0) % Microbiology - Last 24 Hours (Table) 03/01/20 21:50 Blood Culture - Preliminary Blood No Growth after 24 hours Assessment and Plan Assessment: Acute hypoxic respiratory failure secondary to covid 19 pneumonitis Chronic atrial fibrillation, rate controlled. History of valvular heart disease with [id number] tricuspid regurgitation and mild mitral regurgitation. Severe pulmonary hypertension. History of hypertension Plan: The patient was seen and evaluated by Dr. Person This is day 2 of Remdesivir Anticoagulated with Xarelto Continues on dexamethasone, vitamin supplements Repeat chest x-ray in a.m. Overall prognosis remains guarded DO NOT RESUSCITATE/DO NOT INTUBATE CODE STATUS We will continue to follow I, the cosigning physician, performed a history & physical examination of the patient. Lungs sounds bilateral scattered rhonchi. Maintaining good O2 saturations in the 90s on 12 L/m per high flow nasal cannula I discussed the assessment and plan of care with my nurse practitioner, Mile Jameson. I attest to the above note as dictated by her.
--- NOTE | 2020-03-03 16:40 | P.PN ---
Subjective Progress Note Date: 03/03/20 HISTORY OF PRESENT ILLNESS This is an 89-year-old female patient of Dr. Espinoza with past medical history of chronic atrial fibrillation on Xarelto, hyperlipidemia, remote history of tobacco use. Patient developed shortness of breath for several days with increased cough with deep breathing, no shortness of breath and presented initially to the emergency center on February 28. At that time, he had a fever of 101.4, pulse ox 98-99%, 94% with ambulation. CTA of the chest revealed peripheral and bibasilar groundglass infiltrates correlate for atypical or Covid pneumonia. No pulmonary embolus. Initial lactic acid 8.2 and repeat 1.9 after fluids.Influenza A and B testing was negative and Covid 19 was detected. Covid 19 testing was performed at [facility] on February 28 with positive result. Patient was instructed to take Tylenol for fever drink plenty of fluids, prescription for Tessalon Perles was provided and patient was discharged home. Patient returned last evening with increasing shortness of breath, nonproductive cough and continued fevers. Again patient had fever of 101.7, heart rate 94, respiratory rate 28, blood pressure 161/81. Pulse ox 85% on room air. WBC 13.4, hemoglobin 12.6. CO2 20, BUN 27 creatinine 1.23. Blood sugar 176. LDH 2012, C-reactive protein 57. Lactic acid 3.2. EKG was atrial fibrillation with left bundle branch block, rate of 89. Repeat chest x-ray reveals bilateral pulmonary infiltrates increased compared to earlier exam. Patient to be admitted to the Med[facility] floor, started on dexamethasone, vitamin D, vitamin C, zinc, continued on Xarelto, consult with pulmonary medicine. Echocardiogram in November 2018 revealed EF of 55-60% with moderate concentric left ventricular hypertrophy, moderate aortic valve sclerosis without stenosis, mild mitral regurgitation, [id number] tricuspid regurgitation, severe pulmonary hypertension. Patient is seen today in the emergency center. 03/03: Patient was seen in the geriatric chair, with O2 on, and is eating without any difficulties. Patient has severe hearing loss, patient denies any pleurisy however he does have conversational dyspnea. Patient denies any edema, no chest pain no palpitations, no new fevers. Patient has new onset diabetes mellitus, and is not aware of his blood sugars. A1c of 7.9 REVIEW OF SYSTEMS Constitutional: Reports fever, Reports chills, Reports night sweats. No weight change. Reports weakness, fatigue or lethargy. No daytime sleepiness. EENT: No headache. No blurred vision or double vision, no loss of vision. No loss of Hearing, no ringing in the ears, no dizziness. No nasal drainage or congestion. No epistaxis. No sore throat. Lungs: Reports shortness of breath, Reportscough, no sputum production. No wheezing. Cardiovascular: No chest pain, no lower extremity edema. No palpitations. No paroxysmal nocturnal dyspnea. No orthopnea. No lightheadedness or dizziness. No syncopal episodes. Abdominal: No abdominal pain. No nausea, vomiting. No diarrhea. No constipation. No bloody or tarry stools.. No loss of appetite. Genitourinary: No dysuria, increased frequency, urgency. No urinary retention. Musculoskeletal: No myalgias. No muscle weakness, no gait dysfunction, no frequent falls. No back pain. No neck pain. Integumentary: No wounds, no lesions. No rash or pruritus. No unusual bruising. No change in hair or nails. Neurologic: No aphasia. No facial droop. No change in mentation. No head injury. No headache. No paralysis. No paresthesia. Psychiatric: No depression. No anxiety. No mood swings. Endocrine: No abnormal blood sugars. No weight change. No excessive sweating or thirst. No cold intolerance. Objective - Vital Signs Vital signs: Vital Signs Temp 97.1 F L 03/03/20 13:34 Pulse 95 03/03/20 13:34 Resp 18 03/03/20 13:34 BP 143/91 03/03/20 13:34 Pulse Ox 97 03/03/20 13:34 Intake & Output 03/02/20 03/03/20 03/03/20 18:59 06:59 18:59 Weight 73.3 kg Other: Voiding Method Toilet Toilet Toilet Urinal Urinal Urinal # Voids 1 1 - Constitutional General appearance: Present: cooperative, no acute distress - EENT Eyes: Present: anicteric sclerae, EOMI, PERRLA, normal appearance ENT: Present: NA/AT, normal oropharynx - Neck Neck: Present: normal ROM - Respiratory Respiratory: bilateral: CTA - Cardiovascular Rhythm: regular Heart sounds: normal: S1, S2 - Gastrointestinal General gastrointestinal: Present: normal bowel sounds, soft - Integumentary Integumentary: Present: decreased turgor, normal - Neurologic Neurologic: Present: CNII-XII intact - Musculoskeletal Musculoskeletal: Present: gait normal, generalized weakness - Psychiatric Psychiatric: Present: A&O x's 3 - Labs CBC & Chem 7: 03/01/20 21:50 03/01/20 21:50 Labs: Abnormal Lab Results - Last 24 Hours (Table) 03/02/20 03/02/20 03/03/20 Range/Units 18:59 20:56 06:57 POC Glucose (mg/dL) 252 H 234 H (75-99) mg/dL Hemoglobin A1c 7.9 H (4.0-6.0) % 03/03/20 Range/Units 11:58 POC Glucose (mg/dL) 196 H (75-99) mg/dL Hemoglobin A1c (4.0-6.0) % Microbiology - Last 24 Hours (Table) 03/01/20 21:50 Blood Culture - Preliminary Blood No Growth after 24 hours Assessment and Plan Plan: ASSESSMENT AND PLAN 1. COVID-19 pneumonia. Continue dexamethasone, vitamin D, vitamin C, zinc, Xarelto, consult with pulmonary medicine for Remdesivir currently day 2 of 5. Patient is on Xarelto 15 mg at bedtime, budesonide 1 mg twice a day 2. Lactic acidosis secondary to Covid 19 pneumonia, improved status post fluids. 3. Hyperglycemia appears to be prior to steroids, NovoLog scale and check hemoglobin A1c currently at 7.9. Start metformin 500 mg daily, lactic acidosis has improved monitor for creatinine possible lactose conjugal continue NovoLog scale 4. Hypertension. Continue Toprol-XL. 5. Chronic atrial fibrillation rate controlled. Continue Xarelto and Toprol-XL 100 mg at bedtime. 6. 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 7. Hyperlipidemia. Continue simvastatin 20 mg at bedtime. 8. History of right knee effusion, stable. 9. DVT prophylaxis. Xarelto 10. GI prophylaxis. Pepcid 20 mg daily. Patient will be admitted to the hospital for a minimum of 2 night stay.
[2020-03-03 16:54] LABS: Glucose,Whole Blood 275 mg/dL (75-99)
[2020-03-03] MEDS: metFORMIN 500 MG TAB PO SCH (17:20)
[2020-03-03] MEDS: REMDESIVIR 100 MG in SODIUM CHLORIDE 0.9% 250 ML IVPB SCH (18:26)
[2020-03-03 21:09] LABS: Glucose,Whole Blood 237 mg/dL (75-99)
[2020-03-03] MEDS: MULTIVITAMINS, THERA 1 EACH TAB PO SCH (21:14)
[2020-03-03] MEDS: METOPROLOL SUCCINATE (ER) 100 MG TAB.ER.24H PO SCH (21:14)
[2020-03-03] MEDS: ATORVASTATIN 10 MG TAB PO SCH (21:15)
[2020-03-03] MEDS: RIVAROXABAN 15 MG TAB PO SCH (21:17)
[2020-03-04] MEDS: ALBUTEROL HFA INHALER INHALATION SCH ×4 (08:09→20:30)
[2020-03-04] MEDS: INSULIN ASPART (NovoLOG) 100 UNIT/ML VIAL SQ SCH ×4 (08:10→22:52)
[2020-03-04] MEDS: ZINC SULFATE 220 MG CAP PO SCH (08:11)
[2020-03-04] MEDS: metFORMIN 500 MG TAB PO SCH (08:11)
[2020-03-04] MEDS: KETOROLAC 0.5% OPHTH DROPS 5 ML BTL LEFT EYE SCH ×2 (08:11→20:38)
[2020-03-04] MEDS: FAMOTIDINE 20 MG TAB PO SCH (08:11)
[2020-03-04] MEDS: ASCORBIC ACID 500 MG TAB PO SCH (08:11)
[2020-03-04] MEDS: CHOLECALCIFEROL 1,000 UNIT TAB PO SCH (08:11)
[2020-03-04] MEDS: dexAMETHasone 2 MG TAB PO SCH (08:11)
[2020-03-04] MEDS: OFLOXACIN 0.3% OPHTH DROPS 5 ML BOTTLE LEFT EYE SCH ×2 (08:12→20:39)
[2020-03-04] MEDS: NON FORMULARY DRUG (Loteprednol Etabonate [Inveltys] 2.8 ML Drops.Susp) LEFT EYE SCH ×2 (08:12→20:48)
[2020-03-04 08:31] LABS: Basophils # (A) 0.1 k/uL (0-0.2); Basophils % (A) 1 %; Eosinophils # (A) 0.1 k/uL (0-0.7); Eosinophils % (A) 0 %; HCT 40.7 % (39.0-53.0); Hypochromasia Marked; Lymphocytes # (A) 0.7 k/uL (1.0-4.8); Lymphocytes % (A) 4 %; MCH 24.8 pg (25.0-35.0); MCHC 29.6 g/dL (31.0-37.0); MCV 83.8 fL (80.0-100.0); Monocytes # (A) 0.6 k/uL (0-1.0); Monocytes % (A) 4 %; Neutrophils # (A) 13.1 k/uL (1.3-7.7); Neutrophils % (A) 88 %; Platelet Count 276 k/uL (150-450); Poikilocytosis Slight; RBC 4.86 m/uL (4.30-5.90); RDW 15.8 % (11.5-15.5); WBC 14.8 k/uL (3.8-10.6)
--- NOTE | 2020-03-04 10:04 | XR ---
EXAMINATION TYPE: XR chest 1V portable DATE OF EXAM: 03/04/2020 COMPARISON: 03/01/2020 INDICATION: Covid pneumonia, short of breath TECHNIQUE: Single frontal view of the chest is obtained. FINDINGS: The heart size is mildly prominent. The pulmonary vasculature is indistinct. Diffuse increased opacities present bilaterally. This is worsening over the interval. IMPRESSION: 1. Worsening bilateral lung infiltrates.
[2020-03-04 10:30] LABS: Erythrocyte Sedimentation Rate 34 mm/hr (0-15)
--- NOTE | 2020-03-04 11:16 | CONS ---
CONSULTATION DATE OF SERVICE: 03/03/2020 REASON FOR CONSULTATION: COVID-19 pneumonia. HISTORY OF PRESENT ILLNESS: The patient is an 89-year-old male presenting to the ER at [facility] 2 days ago for evaluation of increasing shortness of breath. The patient's symptoms have been going on for 7 days before presentation to the hospital and has been mostly shortness of breath on minimal exertion. The patient also has a cough which is moderate in intensity but not bringing up any sputum. Denies having any pleuritic chest pain. Has been complaining of fevers. Did have a temperature of 101.4 degrees Fahrenheit. On arrival to the ER, the patient did have fever of 101.7 degrees Fahrenheit. The patient was hypoxic at 85% on presentation to the hospital requiring high-flow nasal cannula oxygen. The patient did have a white count of 13.4 with mild lymphopenia. Did have a mildly elevated AST and LDH which was 2012. CRP is 57, procalcitonin 0.23. The patient did have a chest x-ray with bilateral pulmonary infiltrates, increased since exam earlier. Patient has been admitted to the hospital. Infectious Disease was consulted with concern for underlying COVID-19 infection. REVIEW OF SYSTEMS: Positive points have been mentioned in HPI. Rest of the systems are negative. PAST MEDICAL HISTORY: Atrial fibrillation, hypertension, hyperlipidemia. PAST SURGICAL HISTORY: Right knee arthroscopy x2, blepharoplasty, surgery. SOCIAL HISTORY: Remote history of smoking. , no drug use. FAMILY HISTORY: Mother with a history of coronary artery disease. ALLERGIES: No known drug allergies. MEDICATIONS: The patient is currently on Tylenol, DuoNeb, vitamin C, Lipitor, Pulmicort, dexamethasone, Pepcid, hydralazine, NovoLog, Glucophage, Toprol XL, Theragran, Narcan, remdesivir, Xarelto and zinc. PHYSICAL EXAMINATION: VITAL SIGNS: Blood pressure is 159/90 with a pulse of 59, temperature 96.8. He is 96% on 2 L of high-flow oxygen. GENERAL DESCRIPTION: An elderly male up in the bed in no distress. HEENT EXAMINATION: No pallor or scleral icterus. Oral mucous membranes are dry. NECK: Trachea is central, no thyromegaly. LUNGS: Unlabored breathing. bilaterally, no wheeze. HEART: S1, S2. Regular rate and rhythm. ABDOMEN: Soft, no tenderness. No guarding or rigidity. EXTREMITIES: No edema of the feet. SKIN: No rash or mass palpable. NEUROLOGICAL: Patient is awake, alert, oriented. Mood and affect normal. LABS: BUN of 27, creatinine 1.23, HDL, ferritin, CRP and procalcitonin elevated. Hemoglobin is 12.1, white count of 13.4. Chest x-ray report as mentioned above. DIAGNOSTIC IMPRESSION: The patient presented to the hospital with increasing shortness of breath, cough. Chest x-ray showed evidence of bilateral pulmonary infiltrate, elevated CRP and inflammatory markers, likely acute COVID-19 pneumonia. PLAN: 1. The patient has been started on Remdesivir per protocol. 2. Patient to continue with Xarelto and dexamethasone. 3. respiratory support. 4. We will follow up on clinical condition and further adjust medication if needed. Thank you for this consultation. Will follow this patient along with you. MMODL / IJN: [id number] /
[2020-03-04 11:47] LABS: Glucose,Whole Blood 202 mg/dL (75-99)
[2020-03-04] MEDS: FLUTICASONE 220 MCG INHALER INHALATION SCH ×2 (12:36→20:30)
[2020-03-04] MEDS: ALPRAZolam 0.25 MG TAB PO PRN (14:20)
[2020-03-04] MEDS ORDERED: FUROSEMIDE 10 MG/ML 4 ML VIAL IV STA (15:36)
--- NOTE | 2020-03-04 15:40 | P.PN ---
Subjective Progress Note Date: 03/04/20 Principal diagnosis: CoVID 19 pneumonitis This is an 89-year-old white male, known history of chronic atrial fibrillation, maintained on Xarelto, history of dyslipidemia, remote smoking history, patient was brought into the ER with almost 7 days history of increased shortness of breath, cough, and fever he had a temp as high as 101.4. CT of the chest showed peripheral and by basilar groundglass infiltrates consistent with gloria pneumonia/"covid 19 pneumonitis. PCR tested positive on 02/29/20. While in the ER, patient required high flow nasal cannula, and patient will be admitted, will asked to see him on consultation. Evaluated the patient in the ER, and we will arrange for the patient to start on remdesivir. Patient was also placed by the admitting physician on the Covid 19 cocktail treatment. Patient denies any chest pain, denies any hemoptysis, denies any nausea vomiting abdominal pain melena or hematemesis. Patient is seen today 03/03/2020 in follow-up on the regular medical floor. He is currently seen up in a chair. Awake and alert in mild respiratory distress. Still somewhat dyspneic with minimal exertion. Requiring 12 L high flow nasal cannula to maintain O2 saturation in the mid 90s. He's been afebrile. Blood culture reveals no growth to date. Blood glucose 196. He was initiated on Remdesivir yesterday. Today is day #2. He is anticoagulated with Xarelto. Remains on vitamin supplements. Pepcid. On 03/04/2020 patient seen in follow-up on the regular medical floor. Still requiring high flow oxygen, 100% nonrebreather mask, pulse ox is 97%. Patient has coughing spells, at times he moans, and she is very short of breath with any exertion, he is afebrile, hemodynamically stable. Chest x-ray shows worsening bilateral lung infiltrates. Continues on Remdesivir, today is day 3 of treatment, patient on oral Decadron, Pepcid, zinc sulfate, and Xarelto Objective - Vital Signs Vital signs: Vital Signs Temp 97.8 F 03/04/20 14:30 Pulse 98 03/04/20 14:30 Resp 17 03/04/20 14:30 BP 138/90 03/04/20 14:30 Pulse Ox 97 03/04/20 14:30 Intake & Output 03/03/20 03/04/20 03/04/20 18:59 06:59 18:59 Intake Total 250 Output Total 200 Balance 50 Weight 70.5 kg Intake: IV 250 Remdesivir (Eua) 100 mg 250 In Sodium Chloride 0.9% 250 ml @ 250 mls/hr IVPB Q24H [facility] Rx#:[id number] Output: Urine 200 Other: Voiding Method Toilet Toilet Urinal Urinal # Voids 2 # Bowel Movements 1 - Exam GENERAL EXAM: Weak, drowsy, but arousable 89-year-old white male, laying in bed on his side and his abdomen, he is on 100% nonrebreather, with a pulse ox of 94%, comfortable in no apparent distress. HEAD: Normocephalic/atraumatic. EYES: Normal reaction of pupils, equal size. Conjunctiva pink, sclera white. NOSE: Clear with pink turbinates. THROAT: No erythema or exudates. NECK: No masses, no JVD, no thyroid enlargement, no adenopathy. CHEST: No chest wall deformity. Symmetrical expansion. LUNGS: Equal air entry with no crackles, wheeze, rhonchi or dullness. CVS: Regular rate and rhythm, normal S1 and S2, no gallops, no murmurs, no rubs ABDOMEN: Soft, nontender. No hepatosplenomegaly, normal bowel sounds, no guarding or rigidity. EXTREMITIES: No clubbing, no edema, no cyanosis, 2+ pulses and upper and lower extremities. MUSCULOSKELETAL: Muscle strength and tone normal. SPINE: No scoliosis or deformity SKIN: No rashes CENTRAL NERVOUS SYSTEM: Alert and oriented -3. No focal deficits, tone is normal in all 4 extremities. PSYCHIATRIC: Alert and oriented -3. Appropriate affect. Intact judgment and insight. - Labs CBC & Chem 7: 03/04/20 07:39 03/01/20 21:50 Labs: Abnormal Lab Results - Last 24 Hours (Table) 03/03/20 03/03/20 03/04/20 Range/Units 16:51 21:08 07:39 WBC 14.8 H (3.8-10.6) k/uL Hgb 12.0 L (13.0-17.5) gm/dL MCH 24.8 L (25.0-35.0) pg MCHC 29.6 L (31.0-37.0) g/dL RDW 15.8 H (11.5-15.5) % Neutrophils # 13.1 H (1.3-7.7) k/uL Lymphocytes # 0.7 L (1.0-4.8) k/uL ESR 34 H (0-15) mm/hr POC Glucose (mg/dL) 275 H 237 H (75-99) mg/dL 03/04/20 Range/Units 11:44 WBC (3.8-10.6) k/uL Hgb (13.0-17.5) gm/dL MCH (25.0-35.0) pg MCHC (31.0-37.0) g/dL RDW (11.5-15.5) % Neutrophils # (1.3-7.7) k/uL Lymphocytes # (1.0-4.8) k/uL ESR (0-15) mm/hr POC Glucose (mg/dL) 202 H (75-99) mg/dL Microbiology - Last 24 Hours (Table) 03/01/20 21:50 Blood Culture - Preliminary Blood No Growth after 48 hours Assessment and Plan Plan: Assessment: Acute hypoxic respiratory failure secondary to covid 19 pneumonitis, started on Remdesivir on 03/02/2020 Chronic atrial fibrillation, rate controlled. History of valvular heart disease with [id number] tricuspid regurgitation and mild mitral regurgitation. Severe pulmonary hypertension. History of hypertension Plan: Continue Remdesivir, we'll give a dose of convalescent plasma, we will give a dose of IV Lasix, we'll switch Decadron to IV steroids 60 mg every 6 hours, we'll add XAnax for anxiety. Today's chest x-ray shows worsening of bilateral infiltrates. Patient is very short of breath at any exertion. Continue with Xarelto for oral anticoagulation, continue Pepcid. Overall prognosis is extremely guarded. We'll obtain a d-dimer, we will obtain inflammatory markers. We'll continue to closely follow. I performed a history & physical examination of the patient and discussed their management with my nurse practitioner, Guera Leahy. I reviewed the nurse practitioner's note and agree with the documented findings and plan of care. Lung sounds are positive for diffuse crackles. The findings and the impression was discussed with the patient. I attest to the documentation by the nurse practitioner. Time with Patient: Less than 30
[2020-03-04] MEDS ORDERED: guaiFENesin-DM 100-10MG/5ML 10 ML CUP PO PRN (15:59)
[2020-03-04 16:02] LABS: C Reactive Protein 4.4 mg/dL (0.0-0.8)
[2020-03-04 16:43] LABS: Glucose,Whole Blood 256 mg/dL (75-99)
[2020-03-04] MEDS: REMDESIVIR 100 MG in SODIUM CHLORIDE 0.9% 250 ML IVPB SCH (16:52)
[2020-03-04] MEDS: methylPREDNISolone SOD SUCCI 125 MG/2 ML VIAL IV SCH (16:52)
--- NOTE | 2020-03-04 17:14 | P.PN ---
Subjective Progress Note Date: 03/04/20 HISTORY OF PRESENT ILLNESS This is an 89-year-old female patient of Dr. Espinoza with past medical history of chronic atrial fibrillation on Xarelto, hyperlipidemia, remote history of tobacco use. Patient developed shortness of breath for several days with increased cough with deep breathing, no shortness of breath and presented initially to the emergency center on February 28. At that time, he had a fever of 101.4, pulse ox 98-99%, 94% with ambulation. CTA of the chest revealed peripheral and bibasilar groundglass infiltrates correlate for atypical or Covid pneumonia. No pulmonary embolus. Initial lactic acid 8.2 and repeat 1.9 after fluids.Influenza A and B testing was negative and Covid 19 was detected. Covid 19 testing was performed at [facility] on February 28 with positive result. Patient was instructed to take Tylenol for fever drink plenty of fluids, prescription for Tessalon Perles was provided and patient was discharged home. Patient returned last evening with increasing shortness of breath, nonproductive cough and continued fevers. Again patient had fever of 101.7, heart rate 94, respiratory rate 28, blood pressure 161/81. Pulse ox 85% on room air. WBC 13.4, hemoglobin 12.6. CO2 20, BUN 27 creatinine 1.23. Blood sugar 176. LDH 2012, C-reactive protein 57. Lactic acid 3.2. EKG was atrial fibrillation with left bundle branch block, rate of 89. Repeat chest x-ray reveals bilateral pulmonary infiltrates increased compared to earlier exam. Patient to be admitted to the [facility] floor, started on dexamethasone, vitamin D, vitamin C, zinc, continued on Xarelto, consult with pulmonary medicine. Echocardiogram in November 2018 revealed EF of 55-60% with moderate concentric left ventricular hypertrophy, moderate aortic valve sclerosis without stenosis, mild mitral regurgitation, [id number] tricuspid regurgitation, severe pulmonary hypertension. Patient is seen today in the emergency center. 03/03: Patient was seen in the geriatric chair, with O2 on, and is eating without any difficulties. Patient has severe hearing loss, patient denies any pleurisy however he does have conversational dyspnea. Patient denies any edema, no chest pain no palpitations, no new fevers. Patient has new onset diabetes mellitus, and is not aware of his blood sugars. A1c of 7.9 03/04, patient seen in bed, still with mild respiratory distress, he has some cough, and seemed to be grunting during breathing, has shortness of breath with conversation and resting tachypnea. He is on 100% nonrebreather mask 15 L, chest x-ray shows worsening bilateral lung infiltrate, he remains on remdesivir day #3, oral Decadron, sitting and Xarelto. Solid blood pressure 138, T-max of 97 8, RR of 17 REVIEW OF SYSTEMS Constitutional: Reports fever, Reports chills, Reports night sweats. No weight change. Reports weakness, fatigue or lethargy. No daytime sleepiness. EENT: No headache. No blurred vision or double vision, no loss of vision. No loss of Hearing, no ringing in the ears, no dizziness. No nasal drainage or congestion. No epistaxis. No sore throat. Lungs: Reports shortness of breath, Reportscough, no sputum production. No wheezing. Cardiovascular: No chest pain, no lower extremity edema. No palpitations. No paroxysmal nocturnal dyspnea. No orthopnea. No lightheadedness or dizziness. No syncopal episodes. Abdominal: No abdominal pain. No nausea, vomiting. No diarrhea. No constipation. No bloody or tarry stools.. No loss of appetite. Genitourinary: No dysuria, increased frequency, urgency. No urinary retention. Musculoskeletal: No myalgias. No muscle weakness, no gait dysfunction, no frequent falls. No back pain. No neck pain. Integumentary: No wounds, no lesions. No rash or pruritus. No unusual bruising. No change in hair or nails. Neurologic: No aphasia. No facial droop. No change in mentation. No head injury. No headache. No paralysis. No paresthesia. Psychiatric: No depression. No anxiety. No mood swings. Endocrine: No abnormal blood sugars. No weight change. No excessive sweating or thirst. No cold intolerance. Objective - Vital Signs Vital signs: Vital Signs Temp 97.8 F 03/04/20 14:30 Pulse 98 03/04/20 14:30 Resp 17 03/04/20 14:30 BP 138/90 03/04/20 14:30 Pulse Ox 97 03/04/20 14:30 Intake & Output 03/03/20 03/04/20 03/04/20 18:59 06:59 18:59 Intake Total 250 Output Total 200 Balance 50 Weight 70.5 kg Intake: IV 250 Remdesivir (Eua) 100 mg 250 In Sodium Chloride 0.9% 250 ml @ 250 mls/hr IVPB Q24H [facility] Rx#:[id number] Output: Urine 200 Other: Voiding Method Toilet Toilet Urinal Urinal # Voids 2 # Bowel Movements 1 - Constitutional General appearance: Present: cooperative, mild distress - EENT Eyes: Present: EOMI, PERRLA ENT: Present: normal oropharynx - Neck Neck: Present: normal ROM - Respiratory Respiratory: bilateral: diminished, rhonchi, negative: CTA - Cardiovascular Rhythm: regular Heart sounds: normal: S1, S2 Abnormal Heart Sounds: Absent: systolic murmur, diastolic murmur, rub, S3 Gallop, S4 Gallop, click, other - Integumentary Integumentary: Present: decreased turgor, normal - Neurologic Neurologic: Present: CNII-XII intact - Musculoskeletal Musculoskeletal: Present: generalized weakness - Psychiatric Psychiatric: Present: appropriate affect - Labs CBC & Chem 7: 03/04/20 07:39 03/01/20 21:50 Labs: Abnormal Lab Results - Last 24 Hours (Table) 03/03/20 03/04/20 03/04/20 Range/Units 21:08 07:39 07:39 WBC 14.8 H (3.8-10.6) k/uL Hgb 12.0 L (13.0-17.5) gm/dL MCH 24.8 L (25.0-35.0) pg MCHC 29.6 L (31.0-37.0) g/dL RDW 15.8 H (11.5-15.5) % Neutrophils # 13.1 H (1.3-7.7) k/uL Lymphocytes # 0.7 L (1.0-4.8) k/uL ESR 34 H (0-15) mm/hr D-Dimer (<0.60) mg/L FEU POC Glucose (mg/dL) 237 H (75-99) mg/dL Ferritin 514.0 H (22.0-322.0) ng/mL Lactate Dehydrogenase 713 H (120-246) U/L C-Reactive Protein 4.4 H (0.0-0.8) mg/dL 03/04/20 03/04/20 03/04/20 Range/Units 11:44 16:14 16:41 WBC (3.8-10.6) k/uL Hgb (13.0-17.5) gm/dL MCH (25.0-35.0) pg MCHC (31.0-37.0) g/dL RDW (11.5-15.5) % Neutrophils # (1.3-7.7) k/uL Lymphocytes # (1.0-4.8) k/uL ESR (0-15) mm/hr D-Dimer 7.82 H (<0.60) mg/L FEU POC Glucose (mg/dL) 202 H 256 H (75-99) mg/dL Ferritin (22.0-322.0) ng/mL Lactate Dehydrogenase (120-246) U/L C-Reactive Protein (0.0-0.8) mg/dL Microbiology - Last 24 Hours (Table) 03/01/20 21:50 Blood Culture - Preliminary Blood No Growth after 48 hours Assessment and Plan Plan: ASSESSMENT AND PLAN 1. COVID-19 pneumonia with respiratory distress worsening infiltrate, wors ening hypoxemia, now on nonrebreather mask, 15 L, pulmonary following, prognosis remains to be guarded, infectious disease following as well. Continue dexamethasone, vitamin D, vitamin C, zinc, Xarelto, consult with pulmonary medicine for Remdesivir currently day 2 of 5. Patient is on Xarelto 15 mg at bedtime, Flovent 222 puffs twice a day Ventolin in inhaler when necessary 2. Lactic acidosis secondary to Covid 19 pneumonia, improved status post fluids. 3. Hyperglycemia appears to be prior to steroids, NovoLog scale and check hemoglobin A1c currently at 7.9. Start metformin 500 mg daily, lactic acidosis has improved monitor for creatinine possible lactose conjugal continue NovoLog s leila 4. Hypertension. Continue Toprol-XL. 5. Chronic atrial fibrillation rate controlled. Continue Xarelto and Toprol-XL 100 mg at bedtime. 6. 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 7. Hyperlipidemia. Continue simvastatin 20 mg at bedtime. 8. History of right knee effusion, stable. 9. DVT prophylaxis. Xarelto 10. GI prophylaxis. Pepcid 20 mg daily. Patient will be admitted to the hospital for a minimum of 2 night stay. Prognosis guarded,
[2020-03-04] MEDS: MULTIVITAMINS, THERA 1 EACH TAB PO SCH (20:37)
[2020-03-04] MEDS: ATORVASTATIN 10 MG TAB PO SCH (20:37)
[2020-03-04] MEDS: METOPROLOL SUCCINATE (ER) 100 MG TAB.ER.24H PO SCH (20:37)
[2020-03-04] MEDS: RIVAROXABAN 15 MG TAB PO SCH (20:37)
[2020-03-04 21:37] LABS: Glucose,Whole Blood 292 mg/dL (75-99)
[2020-03-04 22:24] LABS: Glucose,Whole Blood 254 mg/dL (75-99)
--- NOTE | 2020-03-04 22:55 | PN ---
PROGRESS NOTE DATE OF SERVICE: 03/04/2020 REASON FOR FOLLOWUP: COVID-19 infection. INTERVAL HISTORY: The patient is currently afebrile. The patient remains lethargic, still requiring high- flow nasal cannula oxygen. Denies having any chest pain. Minimal cough. No abdominal pain. No diarrhea reported. PHYSICAL EXAMINATION: Blood pressure 137/85 with a pulse of 91, temperature 98.4. He is 92% on 15 L high- flow oxygen. General description is an elderly male lying in bed in no distress. RESPIRATORY SYSTEM: Unlabored breathing. Coarse breath sounds bilaterally. No wheeze. HEART: S1, S2. Regular rate and rhythm. ABDOMEN: Soft. No tenderness. EXTREMITIES: No edema of the feet. LABS/IMAGING: Hemoglobin is 12 with a white count of 14.8. CRP is 4.4 and LDH is 713, and they have shown a downward trend. Patient's chest x-ray shows worsening bilateral lung infiltrates. DIAGNOSTIC IMPRESSION AND PLAN: Patient with acute COVID-19 pneumonia in this patient currently covered with remdesivir, Solu-Medrol, zinc sulfate; to continue along with anticoagulation and monitor his clinical course closely. Continue with supportive care. MMODL / IJN: [id number] /
[2020-03-05] MEDS: methylPREDNISolone SOD SUCCI 125 MG/2 ML VIAL IV SCH ×4 (01:21→16:35)
[2020-03-05] MEDS: PIPERACILLIN-TAZOBACTAM 3.375 GM in SODIUM CHLORIDE 0.9% 100 ML IVPB SCH ×3 (03:41→14:26)
[2020-03-05 07:08] LABS: Glucose,Whole Blood 275 mg/dL (75-99)
[2020-03-05 07:33] LABS: Basophils # (A) 0.1 k/uL (0-0.2); Basophils % (A) 1 %; Eosinophils % (A) 0 %; HGB 12.3 gm/dL (13.0-17.5); Hypochromasia Moderate; Lymphocytes # (A) 0.5 k/uL (1.0-4.8); Lymphocytes % (A) 4 %; MCH 25.8 pg (25.0-35.0); MCHC 31.5 g/dL (31.0-37.0); MCV 81.9 fL (80.0-100.0); Mean Platelet Volume 9.6; Monocytes # (A) 0.5 k/uL (0-1.0); Monocytes % (A) 4 %; Neutrophils # (A) 12.2 k/uL (1.3-7.7); Neutrophils % (A) 90 %; Platelet Count 282 k/uL (150-450); Poikilocytosis Slight; RBC 4.76 m/uL (4.30-5.90); RDW 15.7 % (11.5-15.5); WBC 13.5 k/uL (3.8-10.6)
[2020-03-05] MEDS: metFORMIN 500 MG TAB PO SCH ×2 (08:05→16:52)
[2020-03-05] MEDS: CHOLECALCIFEROL 1,000 UNIT TAB PO SCH (08:05)
[2020-03-05] MEDS: ALPRAZolam 0.25 MG TAB PO PRN (08:05)
[2020-03-05] MEDS: ZINC SULFATE 220 MG CAP PO SCH (08:05)
[2020-03-05] MEDS: ASCORBIC ACID 500 MG TAB PO SCH (08:05)
[2020-03-05] MEDS: FAMOTIDINE 20 MG TAB PO SCH (08:05)
[2020-03-05] MEDS: INSULIN ASPART (NovoLOG) 100 UNIT/ML VIAL SQ SCH ×3 (08:06→16:55)
[2020-03-05] MEDS: OFLOXACIN 0.3% OPHTH DROPS 5 ML BOTTLE LEFT EYE SCH (08:06)
[2020-03-05] MEDS: KETOROLAC 0.5% OPHTH DROPS 5 ML BTL LEFT EYE SCH (08:06)
[2020-03-05 09:59] VITALS: TEMP 97.5
[2020-03-05] MEDS: ALBUTEROL HFA INHALER INHALATION SCH ×4 (10:32→19:42)
[2020-03-05] MEDS: NON FORMULARY DRUG (Loteprednol Etabonate [Inveltys] 2.8 ML Drops.Susp) LEFT EYE SCH (10:36)
[2020-03-05] MEDS: FLUTICASONE 220 MCG INHALER INHALATION SCH (11:20)
[2020-03-05 11:28] LABS: Glucose,Whole Blood 246 mg/dL (75-99)
[2020-03-05 13:59] LABS: African American GFR (CKD) 77.5 (60.0-200.0); Albumin 3.7 g/dL (3.80-4.90); Albumin/Globulin Ratio 1.28 (1.60-3.17); Anion Gap 12.5 mmol/L (4.00-12.00); Calcium 9.1 mg/dL (8.7-10.3); Carbon Dioxide 24.5 mmol/L (21.6-31.8); Globulin 2.9 g/dL (1.6-3.3); Non-African American GFR(CKD) 66.9 (60.0-200.0); Potassium 3.8 mmol/L (3.5-5.5); Total Bilirubin 1.1 mg/dL (0.2-1.2); Total Protein 6.6 g/dL (6.2-8.2)
--- NOTE | 2020-03-05 14:46 | P.PN ---
Subjective Progress Note Date: 03/05/20 Principal diagnosis: CoVID 19 pneumonitis This is an 89-year-old white male, known history of chronic atrial fibrillation, maintained on Xarelto, history of dyslipidemia, remote smoking history, patient was brought into the ER with almost 7 days history of increased shortness of breath, cough, and fever he had a temp as high as 101.4. CT of the chest showed peripheral and by basilar groundglass infiltrates consistent with gloria pneumonia/"covid 19 pneumonitis. PCR tested positive on 02/29/20. While in the ER, patient required high flow nasal cannula, and patient will be admitted, will asked to see him on consultation. Evaluated the patient in the ER, and we will arrange for the patient to start on remdesivir. Patient was also placed by the admitting physician on the Covid 19 cocktail treatment. Patient denies any chest pain, denies any hemoptysis, denies any nausea vomiting abdominal pain melena or hematemesis. Patient is seen today 03/03/2020 in follow-up on the regular medical floor. He is currently seen up in a chair. Awake and alert in mild respiratory distress. Still somewhat dyspneic with minimal exertion. Requiring 12 L high flow nasal cannula to maintain O2 saturation in the mid 90s. He's been afebrile. Blood culture reveals no growth to date. Blood glucose 196. He was initiated on Remdesivir yesterday. Today is day #2. He is anticoagulated with Xarelto. Remains on vitamin supplements. Pepcid. The patient is seen today 03/05/2020 in follow-up on the regular medical floor. He has been slow to progress. His chest x-ray shows worsening bilateral infiltrates. He is currently on 15 L high flow nasal cannula and a nonrebreathe r mask at 100%. O2 saturations in the high 80s. He needs constant supervision from staff as he takes off his oxygen and desaturates quickly into the low 70s. This is day number #4 of Remdesivir. He remains anticoagulated with Xarelto. Empiric antibiotics in the form of Zosyn. Remains on vitamins C, D, zinc, Pepcid. IV Solu-Medrol. Objective - Vital Signs Vital signs: Vital Signs Temp 97.5 F L 03/05/20 09:35 Pulse 104 H 03/05/20 09:35 Resp 20 11/28/20 09:35 BP 116/75 03/05/20 09:35 Pulse Ox 92 L 03/05/20 09:35 Intake & Output 03/04/20 03/05/20 03/05/20 18:59 06:59 18:59 Intake Total 250 212 450 Output Total 200 1900 Balance 50 -1688 450 Weight 70.5 kg 64.5 kg Intake: IV 250 250 Remdesivir (Eua) 100 mg 250 250 In Sodium Chloride 0.9% 250 ml @ 250 mls/hr IVPB Q24H ANA MARÍA Rx#:[id number] Intake, IV Titration 200 Amount Piperacillin-Tazobactam 3 200 .375 gm In Sodium Chloride 0.9% 100 ml @ 25 mls/hr IVPB Q6H ANA MARÍA Rx#: [id number] Blood Product 0 212 Ffp Pher Conval Covid19 0 212 Acda 3 Unit [id number] Output: Urine 200 1900 Uretheral ([place]) 1200 Other: Voiding Method Indwelling Catheter Indwelling Catheter - Exam GENERAL EXAM: Alert, frail restlessness, 89-year-old gentleman, on 15 L high flow nasal cannula and nonrebreather mask, in mild respiratory respiratory distress. HEAD: Normocephalic. EYES: Normal reaction of pupils, equal size. NOSE: Clear with pink turbinates. THROAT: No erythema or exudates. NECK: No masses, no JVD. CHEST: No chest wall deformity. LUNGS: Equal air entry with bilateral scattered rhonchi CVS: S1 and S2 normal with no audible murmur, regular rhythm. ABDOMEN: No hepatosplenomegaly, normal bowel sounds, no guarding or rigidity. SPINE: No scoliosis or deformity SKIN: No rashes CENTRAL NERVOUS SYSTEM: No focal deficits, tone is normal in all 4 extremities. EXTREMITIES: There is no peripheral edema. No clubbing, no cyanosis. Peripheral pulses are intact. - Labs CBC & Chem 7: 03/05/20 06:57 03/05/20 06:57 Labs: Abnormal Lab Results - Last 24 Hours (Table) 03/04/20 03/04/20 03/04/20 Range/Units 07:39 16:14 16:15 WBC (3.8-10.6) k/uL Hgb (13.0-17.5) gm/dL RDW (11.5-15.5) % Neutrophils # (1.3-7.7) k/uL Lymphocytes # (1.0-4.8) k/uL D-Dimer 7.82 H (<0.60) mg/L FEU Sodium (135-145) mmol/L Chloride (96-109) mmol/L Anion Gap (4.00-12.00) mmol/L BUN (9.0-27.0) mg/dL BUN/Creatinine Ratio (12.00-20.00) Ratio Glucose (70-110) mg/dL POC Glucose (mg/dL) (75-99) mg/dL Ferritin 514.0 H (22.0-322.0) ng/mL AST (14-35) U/L Alkaline Phosphatase (41-126) U/L Lactate Dehydrogenase 713 H (120-246) U/L C-Reactive Protein 4.4 H (0.0-0.8) mg/dL Albumin (3.80-4.90) g/dL Albumin/Globulin Ratio (1.60-3.17) g/dL Procalcitonin 0.13 H (0.02-0.09) ng/mL 03/04/20 03/04/20 03/04/20 Range/Units 16:41 21:35 22:22 WBC (3.8-10.6) k/uL Hgb (13.0-17.5) gm/dL RDW (11.5-15.5) % Neutrophils # (1.3-7.7) k/uL Lymphocytes # (1.0-4.8) k/uL D-Dimer (<0.60) mg/L FEU Sodium (135-145) mmol/L Chloride (96-109) mmol/L Anion Gap (4.00-12.00) mmol/L BUN (9.0-27.0) mg/dL BUN/Creatinine Ratio (12.00-20.00) Ratio Glucose (70-110) mg/dL POC Glucose (mg/dL) 256 H 292 H 254 H (75-99) mg/dL Ferritin (22.0-322.0) ng/mL AST (14-35) U/L Alkaline Phosphatase (41-126) U/L Lactate Dehydrogenase (120-246) U/L C-Reactive Protein (0.0-0.8) mg/dL Albumin (3.80-4.90) g/dL Albumin/Globulin Ratio (1.60-3.17) g/dL Procalcitonin (0.02-0.09) ng/mL 03/05/20 03/05/20 03/05/20 Range/Units 06:57 06:57 06:57 WBC 13.5 H (3.8-10.6) k/uL Hgb 12.3 L (13.0-17.5) gm/dL RDW 15.7 H (11.5-15.5) % Neutrophils # 12.2 H (1.3-7.7) k/uL Lymphocytes # 0.5 L (1.0-4.8) k/uL D-Dimer 15.23 H (<0.60) mg/L FEU Sodium 149 H (135-145) mmol/L Chloride 112 H (96-109) mmol/L Anion Gap 12.50 H (4.00-12.00) mmol/L BUN 40.0 H (9.0-27.0) mg/dL BUN/Creatinine Ratio 40.00 H (12.00-20.00) Ratio Glucose 277 H (70-110) mg/dL POC Glucose (mg/dL) (75-99) mg/dL Ferritin (22.0-322.0) ng/mL AST 71 H (14-35) U/L Alkaline Phosphatase 143 H (41-126) U/L Lactate Dehydrogenase (120-246) U/L C-Reactive Protein (0.0-0.8) mg/dL Albumin 3.70 L (3.80-4.90) g/dL Albumin/Globulin Ratio 1.28 L (1.60-3.17) g/dL Procalcitonin (0.02-0.09) ng/mL 03/05/20 03/05/20 Range/Units 07:04 11:24 WBC (3.8-10.6) k/uL Hgb (13.0-17.5) gm/dL RDW (11.5-15.5) % Neutrophils # (1.3-7.7) k/uL Lymphocytes # (1.0-4.8) k/uL D-Dimer (<0.60) mg/L FEU Sodium (135-145) mmol/L Chloride (96-109) mmol/L Anion Gap (4.00-12.00) mmol/L BUN (9.0-27.0) mg/dL BUN/Creatinine Ratio (12.00-20.00) Ratio Glucose (70-110) mg/dL POC Glucose (mg/dL) 275 H 246 H (75-99) mg/dL Ferritin (22.0-322.0) ng/mL AST (14-35) U/L Alkaline Phosphatase (41-126) U/L Lactate Dehydrogenase (120-246) U/L C-Reactive Protein (0.0-0.8) mg/dL Albumin (3.80-4.90) g/dL Albumin/Globulin Ratio (1.60-3.17) g/dL Procalcitonin (0.02-0.09) ng/mL Microbiology - Last 24 Hours (Table) 03/01/20 21:50 Blood Culture - Preliminary Blood No Growth after 72 hours Assessment and Plan Assessment: Acute hypoxic respiratory failure secondary to covid 19 pneumonitis with worsening bilateral lung infiltrates on most recent chest x-ray. Chronic atrial fibrillation, rate controlled. 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 Severe pulmonary hypertension. History of hypertension Plan: The patient was seen and evaluated by Dr. Person Chest x-ray reveals worsening bilateral infiltrates Remains on high oxygen requirements This is day 4 of Remdesivir Anticoagulated with Xarelto Continues on IV Solu-Medrol and Zosyn Overall prognosis is poor, consider hospice/comfort care DO NOT RESUSCITATE/DO NOT INTUBATE CODE STATUS I, the cosigning physician, performed a history & physical examination of the patient. Lungs sounds bilateral scattered rhonchi. Maintaining good O2 s aturations in the 80s on 15 L/m per high flow nasal cannula along with a nonrebreather mask I discussed the assessment and plan of care with my nurse practitioner, Mile Jameson. I attest to the above note as dictated by her.
[2020-03-05] MEDS: REMDESIVIR 100 MG in SODIUM CHLORIDE 0.9% 250 ML IVPB SCH (16:35)
[2020-03-05 16:43] LABS: Glucose,Whole Blood 202 mg/dL (75-99)
[2020-03-05] MEDS ORDERED: SCOPOLAMINE 1.5MG/72HR PATCH TRANSDERM SCH (17:15)
[2020-03-05] MEDS: MORPHINE SULFATE 2 MG/ML SYRINGE IVP PRN ×2 (17:35→23:04)
--- NOTE | 2020-03-05 19:02 | P.PN ---
Subjective Progress Note Date: 03/05/20 HISTORY OF PRESENT ILLNESS This is an 89-year-old female patient of Dr. Espinoza with past medical history of chronic atrial fibrillation on Xarelto, hyperlipidemia, remote history of tobacco use. Patient developed shortness of breath for several days with increased cough with deep breathing, no shortness of breath and presented initially to the emergency center on February 28. At that time, he had a fever of 101.4, pulse ox 98-99%, 94% with ambulation. CTA of the chest revealed peripheral and bibasilar groundglass infiltrates correlate for atypical or Covid pneumonia. No pulmonary embolus. Initial lactic acid 8.2 and repeat 1.9 after fluids.Influenza A and B testing was negative and Covid 19 was detected. Covid 19 testing was performed at [facility] on February 28 with positive result. Patient was instructed to take Tylenol for fever drink plenty of fluids, prescription for Tessalon Perles was provided and patient was discharged home. Patient returned last evening with increasing shortness of breath, nonproductive cough and continued fevers. Again patient had fever of 101.7, heart rate 94, respiratory rate 28, blood pressure 161/81. Pulse ox 85% on room air. WBC 13.4, hemoglobin 12.6. CO2 20, BUN 27 creatinine 1.23. Blood sugar 176. LDH 2012, C-reactive protein 57. Lactic acid 3.2. EKG was atrial fibrillation with left bundle branch block, rate of 89. Repeat chest x-ray reveals bilateral pulmonary infiltrates increased compared to earlier exam. Patient to be admitted to the [facility] floor, started on dexamethasone, vitamin D, vitamin C, zinc, continued on Xarelto, consult with pulmonary medicine. Echocardiogram in November 2018 revealed EF of 55-60% with moderate concentric left ventricular hypertrophy, moderate aortic valve sclerosis without stenosis, mild mitral regurgitation, [id number] tricuspid regurgitation, severe pulmonary hypertension. Patient is seen today in the emergency center. 03/03: Patient was seen in the geriatric chair, with O2 on, and is eating without any difficulties. Patient has severe hearing loss, patient denies any pleurisy however he does have conversational dyspnea. Patient denies any edema, no chest pain no palpitations, no new fevers. Patient has new onset diabetes mellitus, and is not aware of his blood sugars. A1c of 7.9 03/04, patient seen in bed, still with mild respiratory distress, he has some cough, and seemed to be grunting during breathing, has shortness of breath with conversation and resting tachypnea. He is on 100% nonrebreather mask 15 L, chest x-ray shows worsening bilateral lung infiltrate, he remains on remdesivir day #3, oral Decadron, sitting and Xarelto. Solid blood pressure 138, T-max of 97 8, RR of 17 03/05, patient is with labored breathing, again grunting is seen, and on a nonrebreather mask, chest x-ray is worsening, with increasing infiltrates, and poor oxygenation and persistent hypoxemia, patient is mentioning that he doesn't want to endure prolonged difficulty resulting from Covid, and wanted to be made comfort care, we have switched out to a family member daughter, and updated with regards to this patient. Pulmonary has recommended comfort care measures only, family member Daughter CLARICE has agreed and wants to proceed with comfort care measures. We will wean off the nonrebreather mask, normal blood works, of antiviral medication and any life-sustaining medication. Patient was started on IV morphine, scopolamine patch, and benzodiazepines for terminal restlessness. REVIEW OF SYSTEMS Constitutional: Reports fever, Reports chills, Reports night sweats. No weight change. Reports weakness, fatigue or lethargy. No daytime sleepiness. EENT: No headache. No blurred vision or double vision, no loss of vision. No loss of Hearing, no ringing in the ears, no dizziness. No nasal drainage or congestion. No epistaxis. No sore throat. Lungs: Reports shortness of breath, Reportscough, no sputum production. No wheezing. Cardiovascular: No chest pain, no lower extremity edema. No palpitations. No paroxysmal nocturnal dyspnea. No orthopnea. No lightheadedness or dizziness. No syncopal episodes. Abdominal: No abdominal pain. No nausea, vomiting. No diarrhea. No constipation. No bloody or tarry stools.. No loss of appetite. Genitourinary: No dysuria, increased frequency, urgency. No urinary retention. Musculoskeletal: No myalgias. No muscle weakness, no gait dysfunction, no frequent falls. No back pain. No neck pain. Integumentary: No wounds, no lesions. No rash or pruritus. No unusual bruising. No change in hair or nails. Neurologic: No aphasia. No facial droop. No change in mentation. No head injury. No headache. No paralysis. No paresthesia. Psychiatric: No depression. No anxiety. No mood swings. Endocrine: No abnormal blood sugars. No weight change. No excessive sweating or thirst. No cold intolerance. Objective - Vital Signs Vital signs: Vital Signs Temp 97.5 F L 03/05/20 14:33 Pulse 107 H 03/05/20 14:33 Resp 22 03/05/20 14:33 BP 149/92 03/05/20 14:33 Pulse Ox 92 L 03/05/20 14:33 Intake & Output 03/04/20 03/05/20 03/05/20 18:59 06:59 18:59 Intake Total 250 212 450 Output Total 200 1900 Balance 50 -1688 450 Weight 70.5 kg 64.5 kg Intake: IV 250 250 Remdesivir (Eua) 100 mg 250 250 In Sodium Chloride 0.9% 250 ml @ 250 mls/hr IVPB Q24H ANA MARÍA Rx#:[id number] Intake, IV Titration 200 Amount Piperacillin-Tazobactam 3 200 .375 gm In Sodium Chloride 0.9% 100 ml @ 25 mls/hr IVPB Q6H ANA MARÍA Rx#: [id number] Blood Product 0 212 Ffp Pher Conval Covid19 0 212 Acda 3 Unit [id number] Output: Urine 200 1900 Uretheral ([place]) 1200 Other: Voiding Method Indwelling Catheter Indwelling Catheter - Constitutional General appearance: Present: average body habitus, mild distress - EENT ENT: Present: NA/AT - Neck Neck: Present: normal ROM - Respiratory Respiratory: bilateral: diminished, rhonchi, wheezing - Cardiovascular Rhythm: regular Abnormal Heart Sounds: Present: systolic murmur - Integumentary Integumentary: Present: decreased turgor, normal - Neurologic Neurologic: Present: CNII-XII intact - Musculoskeletal Musculoskeletal: Present: generalized weakness - Psychiatric Psychiatric: Present: appropriate affect - Labs CBC & Chem 7: 03/05/20 06:57 03/05/20 06:57 Labs: Abnormal Lab Results - Last 24 Hours (Table) 03/04/20 03/04/20 03/04/20 Range/Units 16:15 21:35 22:22 WBC (3.8-10.6) k/uL Hgb (13.0-17.5) gm/dL RDW (11.5-15.5) % Neutrophils # (1.3-7.7) k/uL Lymphocytes # (1.0-4.8) k/uL D-Dimer (<0.60) mg/L FEU Sodium (135-145) mmol/L Chloride (96-109) mmol/L Anion Gap (4.00-12.00) mmol/L BUN (9.0-27.0) mg/dL BUN/Creatinine Ratio (12.00-20.00) Ratio Glucose (70-110) mg/dL POC Glucose (mg/dL) 292 H 254 H (75-99) mg/dL AST (14-35) U/L Alkaline Phosphatase (41-126) U/L Albumin (3.80-4.90) g/dL Albumin/Globulin Ratio (1.60-3.17) g/dL Procalcitonin 0.13 H (0.02-0.09) ng/mL 03/05/20 03/05/20 03/05/20 Range/Units 06:57 06:57 06:57 WBC 13.5 H (3.8-10.6) k/uL Hgb 12.3 L (13.0-17.5) gm/dL RDW 15.7 H (11.5-15.5) % Neutrophils # 12.2 H (1.3-7.7) k/uL Lymphocytes # 0.5 L (1.0-4.8) k/uL D-Dimer 15.23 H (<0.60) mg/L FEU Sodium (135-145) mmol/L Chloride (96-109) mmol/L Anion Gap (4.00-12.00) mmol/L BUN (9.0-27.0) mg/dL BUN/Creatinine Ratio (12.00-20.00) Ratio Glucose (70-110) mg/dL POC Glucose (mg/dL) (75-99) mg/dL AST (14-35) U/L Alkaline Phosphatase (41-126) U/L Albumin (3.80-4.90) g/dL Albumin/Globulin Ratio (1.60-3.17) g/dL Procalcitonin 0.10 H (0.02-0.09) ng/mL 03/05/20 03/05/20 03/05/20 Range/Units 06:57 07:04 11:24 WBC (3.8-10.6) k/uL Hgb (13.0-17.5) gm/dL RDW (11.5-15.5) % Neutrophils # (1.3-7.7) k/uL Lymphocytes # (1.0-4.8) k/uL D-Dimer (<0.60) mg/L FEU Sodium 149 H (135-145) mmol/L Chloride 112 H (96-109) mmol/L Anion Gap 12.50 H (4.00-12.00) mmol/L BUN 40.0 H (9.0-27.0) mg/dL BUN/Creatinine Ratio 40.00 H (12.00-20.00) Ratio Glucose 277 H (70-110) mg/dL POC Glucose (mg/dL) 275 H 246 H (75-99) mg/dL AST 71 H (14-35) U/L Alkaline Phosphatase 143 H (41-126) U/L Albumin 3.70 L (3.80-4.90) g/dL Albumin/Globulin Ratio 1.28 L (1.60-3.17) g/dL Procalcitonin (0.02-0.09) ng/mL 03/05/20 Range/Units 16:41 WBC (3.8-10.6) k/uL Hgb (13.0-17.5) gm/dL RDW (11.5-15.5) % Neutrophils # (1.3-7.7) k/uL Lymphocytes # (1.0-4.8) k/uL D-Dimer (<0.60) mg/L FEU Sodium (135-145) mmol/L Chloride (96-109) mmol/L Anion Gap (4.00-12.00) mmol/L BUN (9.0-27.0) mg/dL BUN/Creatinine Ratio (12.00-20.00) Ratio Glucose (70-110) mg/dL POC Glucose (mg/dL) 202 H (75-99) mg/dL AST (14-35) U/L Alkaline Phosphatase (41-126) U/L Albumin (3.80-4.90) g/dL Albumin/Globulin Ratio (1.60-3.17) g/dL Procalcitonin (0.02-0.09) ng/mL Microbiology - Last 24 Hours (Table) 03/01/20 21:50 Blood Culture - Preliminary Blood No Growth after 72 hours Assessment and Plan Plan: ASSESSMENT AND PLAN 1. COVID-19 pneumonia with respiratory distress worsening infiltrate, worsening hypoxemia, now on nonrebreather mask, 15 L, pulmonary following, prognosis remains to be guarded, infectious disease following as well. Continue dexamethasone, vitamin D, vitamin C, zinc, Xarelto, consult with pulmonary medicine for Remdesivir currently day 2 of 5. Patient is on Xarelto 15 mg at bedtime, Flovent 222 puffs twice a day Ventolin in inhaler when necessary Due to progression of illness, with worsening hypoxemia worsening pneumonia, patient's family was updated, and we've discussed comfort care measures for which they have agreed to, we're going to withdraw life-sustaining med/sustaining procedures, IV morphine and scopolamine and benzos for end-of-life measures 2. Lactic acidosis secondary to Covid 19 pneumonia, improved status post fluids. 3. Hyperglycemia appears to be prior to steroids, NovoLog scale and check hemoglobin A1c currently at 7.9. Start metformin 500 mg daily, lactic acidosis has improved monitor for creatinine possible lactose conjugal continue NovoLog scale 4. Hypertension. disContinue Toprol-XL. 5. Chronic atrial fibrillation rate controlled. disContinue Xarelto and Toprol-XL 100 mg at bedtime. 6. Valvular heart disease with mild mitral regurgitation, [id number] tricuspid regurgitation, severe pulmonary hypertension. 7. Hyperlipidemia. discontinue simvastatin 20 mg at bedtime. 8. History of right knee effusion, stable. 9. DVT prophylaxis. discontinue Xarelto 10. GI prophylaxis. Pepcid 20 mg daily. Patient will be admitted to the hospital for a minimum of 2 night stay. Prognosis guarded, critically ill, expected within the next 24-48 hrs.
[2020-03-05 20:28] LABS: Glucose,Whole Blood 200 mg/dL (75-99)
[2020-03-05] MEDS ORDERED: PIPERACILLIN-TAZOBACTAM 3.375 GM in SODIUM CHLORIDE 0.9% 100 ML IVPB SCH (22:00)
[2020-03-05] MEDS ORDERED: MORPHINE SULFATE (100 MG/2 ML) 100 MG in SODIUM CHLORIDE 0.9% 100 ML IV SCH (23:30)
[2020-03-05] MEDS ORDERED: HALOPERIDOL LACTATE 5 MG/ML 1 ML VIAL IM PRN (23:30)
[2020-03-05] MEDS ORDERED: LORazepam 2 MG/ML INJ IV PRN (23:37)
[2020-03-05] MEDS ORDERED: MORPHINE SULFATE 4 MG/ML SYRINGE IVP STA (23:53)
[2020-03-06] MEDS ORDERED: ALBUTEROL HFA INHALER INHALATION PRN (08:08)
[2020-03-06] MEDS: ALBUTEROL HFA INHALER INHALATION SCH (09:14)
[2020-03-06 10:08] VITALS: BP 97/58; PULSE 93; RESP 16
--- NOTE | 2020-03-06 11:30 | P.PN ---
Subjective Progress Note Date: 03/06/20 HISTORY OF PRESENT ILLNESS This is an 89-year-old female patient of Dr. Espinoza with past medical history of chronic atrial fibrillation on Xarelto, hyperlipidemia, remote history of tobacco use. Patient developed shortness of breath for several days with increased cough with deep breathing, no shortness of breath and presented initially to the emergency center on February 28. At that time, he had a fever of 101.4, pulse ox 98-99%, 94% with ambulation. CTA of the chest revealed peripheral and bibasilar groundglass infiltrates correlate for atypical or Covid pneumonia. No pulmonary embolus. Initial lactic acid 8.2 and repeat 1.9 after fluids.Influenza A and B testing was negative and Covid 19 was detected. Covid 19 testing was performed at [facility] on February 28 with positive result. Patient was instructed to take Tylenol for fever drink plenty of fluids, prescription for Tessalon Perles was provided and patient was discharged home. Patient returned last evening with increasing shortness of breath, nonproductive cough and continued fevers. Again patient had fever of 101.7, heart rate 94, respiratory rate 28, blood pressure 161/81. Pulse ox 85% on room air. WBC 13.4, hemoglobin 12.6. CO2 20, BUN 27 creatinine 1.23. Blood sugar 176. LDH 2012, C-reactive protein 57. Lactic acid 3.2. EKG was atrial fibrillation with left bundle branch block, rate of 89. Repeat chest x-ray reveals bilateral pulmonary infiltrates increased compared to earlier exam. Patient to be admitted to the [facility] floor, started on dexamethasone, vitamin D, vitamin C, zinc, continued on Xarelto, consult with pulmonary medicine. Echocardiogram in November 2018 revealed EF of 55-60% with moderate concentric left ventricular hypertrophy, moderate aortic valve sclerosis without stenosis, mild mitral regurgitation, [id number] tricuspid regurgitation, severe pulmonary hypertension. Patient is seen today in the emergency center. 03/03: Patient was seen in the geriatric chair, with O2 on, and is eating without any difficulties. Patient has severe hearing loss, patient denies any pleurisy however he does have conversational dyspnea. Patient denies any edema, no chest pain no palpitations, no new fevers. Patient has new onset diabetes mellitus, and is not aware of his blood sugars. A1c of 7.9 03/04, patient seen in bed, still with mild respiratory distress, he has some cough, and seemed to be grunting during breathing, has shortness of breath with conversation and resting tachypnea. He is on 100% nonrebreather mask 15 L, chest x-ray shows worsening bilateral lung infiltrate, he remains on remdesivir day #3, oral Decadron, sitting and Xarelto. Solid blood pressure 138, T-max of 97 8, RR of 17 03/05, patient is with labored breathing, again grunting is seen, and on a nonrebreather mask, chest x-ray is worsening, with increasing infiltrates, and poor oxygenation and persistent hypoxemia, patient is mentioning that he doesn't want to endure prolonged difficulty resulting from Covid, and wanted to be made comfort care, we have switched out to a family member daughter, and updated with regards to this patient. Pulmonary has recommended comfort care measures only, family member Daughter CLARICE has agreed and wants to proceed with comfort care measures. We will wean off the nonrebreather mask, normal blood works, of antiviral medication and any life-sustaining medication. Patient was started on IV morphine, scopolamine patch, and benzodiazepines for terminal restlessness. v 03/06: Patient was fairly restless last night, was given IV morphine along with one dose of Haldol 2 mg, comfort pressure measures were in place from last night, patient's comfortable this morning, still with tachypnea, especially in place, Licea in place, IV morphine for comfort care measures, and scopolamine patch. Hospice consult for family bereavement as well as end-of-life REVIEW OF SYSTEMS Constitutional: Reports fever, Reports chills, Reports night sweats. No weight change. Reports weakness, fatigue or lethargy. No daytime sleepiness. EENT: No headache. No blurred vision or double vision, no loss of vision. No loss of Hearing, no ringing in the ears, no dizziness. No nasal drainage or congestion. No epistaxis. No sore throat. Lungs: Reports shortness of breath, Reportscough, no sputum production. No wheezing. Cardiovascular: No chest pain, no lower extremity edema. No palpitations. No paroxysmal nocturnal dyspnea. No orthopnea. No lightheadedness or dizziness. No syncopal episodes. Abdominal: No abdominal pain. No nausea, vomiting. No diarrhea. No constipation. No bloody or tarry stools.. No loss of appetite. Genitourinary: No dysuria, increased frequency, urgency. No urinary retention. Musculoskeletal: No myalgias. No muscle weakness, no gait dysfunction, no frequent falls. No back pain. No neck pain. Integumentary: No wounds, no lesions. No rash or pruritus. No unusual bruising. No change in hair or nails. Neurologic: No aphasia. No facial droop. No change in mentation. No head injury. No headache. No paralysis. No paresthesia. Psychiatric: No depression. No anxiety. No mood swings. Endocrine: No abnormal blood sugars. No weight change. No excessive sweating or thirst. No cold intolerance. Objective - Vital Signs Vital signs: Vital Signs Temp 97.5 F L 03/05/20 14:33 Pulse 93 03/06/20 09:17 Resp 16 03/06/20 09:17 BP 97/58 03/06/20 09:17 Pulse Ox 81 L 03/06/20 09:17 Intake & Output 03/05/20 03/06/20 03/06/20 18:59 06:59 18:59 Intake Total 450 6.866 160 Output Total 300 850 Balance 150 -843.134 160 Weight 64.5 kg Intake: IV 250 160 0.9 160 Remdesivir (Eua) 100 mg 250 In Sodium Chloride 0.9% 250 ml @ 250 mls/hr IVPB Q24H ANA MARÍA Rx#:[id number] Intake, IV Titration 200 6.866 Amount Morphine Sulfate (100 mg/ 6.866 2 ml) 100 mg In Sodium Chloride 0.9% 100 ml @ Titrate IV .Q0M ANA MARÍA Rx#: [id number] Piperacillin-Tazobactam 3 200 .375 gm In Sodium Chloride 0.9% 100 ml @ 25 mls/hr IVPB Q6H ANA MARÍA Rx#: [id number] Output: Urine 300 850 Other: Voiding Method Indwelling Catheter Indwelling Catheter Indwelling Catheter - Exam Unconscious, sedated and receiving morphine for terminal restlessness and pain - Constitutional General appearance: Present: mild distress - Respiratory Respiratory: bilateral: diminished, prolonged expiration, prolonged inspiration - Labs CBC & Chem 7: 03/05/20 06:57 03/05/20 06:57 Labs: Abnormal Lab Results - Last 24 Hours (Table) 03/05/20 03/05/20 03/05/20 Range/Units 06:57 06:57 11:24 Sodium 149 H (135-145) mmol/L Chloride 112 H (96-109) mmol/L Anion Gap 12.50 H (4.00-12.00) mmol/L BUN 40.0 H (9.0-27.0) mg/dL BUN/Creatinine Ratio 40.00 H (12.00-20.00) Ratio Glucose 277 H (70-110) mg/dL POC Glucose (mg/dL) 246 H (75-99) mg/dL AST 71 H (14-35) U/L Alkaline Phosphatase 143 H (41-126) U/L Albumin 3.70 L (3.80-4.90) g/dL Albumin/Globulin Ratio 1.28 L (1.60-3.17) g/dL Procalcitonin 0.10 H (0.02-0.09) ng/mL 03/05/20 03/05/20 Range/Units 16:41 20:26 Sodium (135-145) mmol/L Chloride (96-109) mmol/L Anion Gap (4.00-12.00) mmol/L BUN (9.0-27.0) mg/dL BUN/Creatinine Ratio (12.00-20.00) Ratio Glucose (70-110) mg/dL POC Glucose (mg/dL) 202 H 200 H (75-99) mg/dL AST (14-35) U/L Alkaline Phosphatase (41-126) U/L Albumin (3.80-4.90) g/dL Albumin/Globulin Ratio (1.60-3.17) g/dL Procalcitonin (0.02-0.09) ng/mL Microbiology - Last 24 Hours (Table) 03/01/20 21:50 Blood Culture - Preliminary Blood No Growth after 96 hours Assessment and Plan Plan: ASSESSMENT AND PLAN 1. COVID-19 pneumonia with respiratory distress worsening infiltrate, wors ening hypoxemia, now on nonrebreather mask, 15 L, pulmonary following, prognosis remains to be guarded, infectious disease following as well. Continue dexamethasone, vitamin D, vitamin C, zinc, Xarelto, consult with pulmonary medicine for Remdesivir currently day 2 of 5. Patient is on Xarelto 15 mg at bedtime, Flovent 222 puffs twice a day Ventolin in inhaler when necessary Due to progression of illness, with worsening hypoxemia worsening pneumonia, patient's family was updated, and we've discussed comfort care measures for which they have agreed to, we're going to withdraw life-sustaining med/sustaining procedures, IV morphine and scopolamine and benzos for end-of-life measures 2. Lactic acidosis secondary to Covid 19 pneumonia, improved status post fluids. 3. Hyperglycemia appears to be prior to steroids, NovoLog scale and check hemoglobin A1c currently at 7.9. Start metformin 500 mg daily, lactic acidosis has improved monitor for creatinine possible lactose conjugal continue NovoLog scale 4. Hypertension. disContinue Toprol-XL. 5. Chronic atrial fibrillation rate controlled. disContinue Xarelto and Toprol-XL 100 mg at bedtime. 6. 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 7. Hyperlipidemia. discontinue simvastatin 20 mg at bedtime. 8. History of right knee effusion, stable. 9. DVT prophylaxis. discontinue Xarelto 10. GI prophylaxis. Pepcid 20 mg daily. Patient will be admitted to the hospital for a minimum of 2 night stay. Prognosis guarded, critically ill, expected within the next 24-48 hrs.
--- NOTE | 2020-03-07 07:38 | P.DS ---
Providers Date of admission: 03/01/20 23:16 Expected date of discharge: 03/06/20 Attending physician: Bethel Colindres Consults: 03/02/20 00:23 Consult Physician Stat Consulting Provider: Aracelis Person Consult Reason/Comments: COVID Do you want consulting provider notified?: Yes, Notify in am 03/02/20 21:49 Consult Physician Routine Consulting Provider: Blanca Walsh Consult Reason/Comments: covid Do you want consulting provider notified?: Yes, Notify in am Primary care physician: Tyson DrewLDS Hospital Course: HISTORY OF PRESENT ILLNESS This is an 89-year-old female patient of Dr. Espinoza with past medical history of chronic atrial fibrillation on Xarelto, hyperlipidemia, remote history of tobacco use. Patient developed shortness of breath for several days with increased cough with deep breathing, no shortness of breath and presented initially to the emergency center on February 28. At that time, he had a fever of 101.4, pulse ox 98-99%, 94% with ambulation. CTA of the chest revealed peripheral and bibasilar groundglass infiltrates correlate for atypical or Covid pneumonia. No pulmonary embolus. Initial lactic acid 8.2 and repeat 1.9 after fluids.Influenza A and B testing was negative and Covid 19 was detected. Covid 19 testing was performed at [facility] on February 28 with positive result. Patient was instructed to take Tylenol for fever drink plenty of fluids, prescription for Tessalon Perles was provided and patient was discharged home. Patient returned last evening with increasing shortness of breath, nonproductive cough and continued fevers. Again patient had fever of 101.7, heart rate 94, respiratory rate 28, blood pressure 161/81. Pulse ox 85% on room air. WBC 13.4, hemoglobin 12.6. CO2 20, BUN 27 creatinine 1.23. Blood sugar 176. LDH 2012, C-reactive protein 57. Lactic acid 3.2. EKG was atrial fibrillation with left bundle branch block, rate of 89. Repeat chest x-ray reveals bilateral pulmonary infiltrates increased compared to earlier exam. Patient to be admitted to the [facility] floor, started on dexamethasone, vitamin D, vitamin C, zinc, continued on Xarelto, consult with pulmonary medicine. Echocardiogram in November 2018 revealed EF of 55-60% with moderate concentric left ventricular hypertrophy, moderate aortic valve sclerosis without stenosis, mild mitral regurgitation, [id number] tricuspid regurgitation, severe pulmonary hypertension. Patient is seen today in the emergency center. 03/03: Patient was seen in the geriatric chair, with O2 on, and is eating without any difficulties. Patient has severe hearing loss, patient denies any pleurisy however he does have conversational dyspnea. Patient denies any edema, no chest pain no palpitations, no new fevers. Patient has new onset diabetes mellitus, and is not aware of his blood sugars. A1c of 7.9 03/04, patient seen in bed, still with mild respiratory distress, he has some cough, and seemed to be grunting during breathing, has shortness of breath with conversation and resting tachypnea. He is on 100% nonrebreather mask 15 L, chest x-ray shows worsening bilateral lung infiltrate, he remains on remdesivir day #3, oral Decadron, sitting and Xarelto. Solid blood pressure 138, T-max of 97 8, RR of 17 03/05, patient is with labored breathing, again grunting is seen, and on a nonrebreather mask, chest x-ray is worsening, with increasing infiltrates, and poor oxygenation and persistent hypoxemia, patient is mentioning that he doesn't want to endure prolonged difficulty resulting from Covid, and wanted to be made comfort care, we have switched out to a family member daughter, and updated with regards to this patient. Pulmonary has recommended comfort care measures only, family member Daughter CLARICE has agreed and wants to proceed with comfort care measures. We will wean off the nonrebreather mask, normal blood works, of antiviral medication and any life-sustaining medication. Patient was started on IV morphine, scopolamine patch, and benzodiazepines for terminal restlessness. 03/06: Patient was fairly restless last night, was given IV morphine along with one dose of Haldol 2 mg, comfort pressure measures were in place from last night, patient's comfortable this morning, still with tachypnea, especially in place, Licea in place, IV morphine for comfort care measures, and scopolamine patch. Hospice consult for family bereavement as well as end-of-life Patient on the afternoon of March 06. Please see nursing docum entation for details. DISCHARGE DIAGNOSES 1. COVID-19 pneumonia 2. Acute hypoxic respiratory failure 3. Lactic acidosis secondary to Covid 19 pneumonia. 4. Hyperglycemia secondary to steroids. 5. Hypertension. 6. Chronic atrial fibrillation rate controlled. 7. 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 8. Hyperlipidemia. 9. History of right knee effusion, stable. Impression and plan of care have been directed as dictated by the signing physician. Brianna Clay nurse practitioner acting as scribe for signing physician. Patient Condition at Discharge: Undetermined Plan - Discharge Summary Discharge Rx Participant: No New Discharge Prescriptions: No Action Multivitamins, Thera [Multivitamin (formulary)] 1 tab PO HS Simvastatin [Zocor] 20 mg PO HS Rivaroxaban [Xarelto] 15 mg PO HS Metoprolol Succinate (ER) [Toprol XL] 100 mg PO HS Ofloxacin 0.3% Ophth Soln [Ocuflox Ophth Soln] 1 drops LEFT EYE BID Loteprednol Etabonate [Inveltys] 1 drop LEFT EYE BID Ketorolac 0.5% Ophth Soln [Acular] 1 drops LEFT EYE BID Discharge Medication List Multivitamins, Thera [Multivitamin (formulary)] 1 tab PO HS 12/30/16 [History] Simvastatin [Zocor] 20 mg PO HS 12/30/16 [History] Metoprolol Succinate (ER) [Toprol XL] 100 mg PO HS 11/06/18 [History] Rivaroxaban [Xarelto] 15 mg PO HS 11/06/18 [History] Ketorolac 0.5% Ophth Soln [Acular] 1 drops LEFT EYE BID 03/01/20 [History] Loteprednol Etabonate [Inveltys] 1 drop LEFT EYE BID 03/01/20 [History] Ofloxacin 0.3% Ophth Soln [Ocuflox Ophth Soln] 1 drops LEFT EYE BID 03/01/20 [History] Follow up Appointment(s)/Referral(s): Tyson Espinoza MD [Primary Care Provider] - 1 Week Discharge Disposition: - Preliminary Cause of Preliminary Cause of : COVID-19 pneumonia
[2020-03-08 10:24] LABS: Glucose,Whole Blood 195 mg/dL (75-99)
[2020-03-08 10:24] LABS: Glucose,Whole Blood 154 mg/dL (75-99)
--- NOTE | 2020-03-10 11:11 | CDI ---
Documentation Clarification Form Date: 03/10/2020 10:57:21 AM From: Marianne DoddSchaeferLEATHA, CCDS Admit Date: 03/01/2020 11:16:00 PM Patient Name: Tyler Tierney Visit Number: [id number] Discharge Date: 03/06/2020 05:10:00 PM ATTENTION: The Clinical Documentation Specialists (CDI) and [facility] Coding Staff appreciate your assistance in clarifying documentation. Please respond to the clarification below the line at the bottom and electronically sign. The CDI & [facility] Coding staff will review the response and follow-up if needed. Please note: Queries are made part of the Legal Health Record. If you have any questions, please contact the author of this message via ITS. Dr. Bethel Colindres: 89 yo male presented to the ED on 03/01 with SOB, diagnosed with COVID by outpatient test the day prior to admission. He was diagnosed with COVID 19 Pneumonia, Lactic Acidosis and Hyperglycemia due to steroids and new onset DM II. The patient did not improve, was made comfort care on 03/05 and on 03/06. History/Risk Factors: Atrial Fibrillation, Hyperlipidemia, Hypertension, Former Smoker. Clinical Indicators: Patient presented to the ED on 03/02 with SOB, had a + COVID test done as outpatient the day before. Was in Atrial Fibrillation, worsening breathing and fever. 03/01 EC: T 101.7^, P 94, R 28 (SOB, labored), BP 161/81^, PO 85 RA - 98 2Lnc LAB: WBC 13.4, Hgb 12.6*, Neut 11.8^, Lymph 0.7*, Glucose 176^, Lactic Acid 3.2^^, Ferritin 528.9^, AST 95^, Lactate Dehydrogenase 2012^, CRP 57.0^, Procalcitonin 0.23^ Blood Culture 03/01: Negative after 144 hours 03/01 CXR: Bilateral pulmonary infiltrates increased compared to exam earlier today. Treatment 03/01: INH Ventolin, po Hexadrol, IV fluid 500 mls @ 999 mla/hr q21m. 03/02: Vit C, Vit D3, Orazinc, IV Remdesivir. 03/05: IV Zosyn. In your professional opinion, please clarify if these findings signify one of the following conditions, whether the condition is POA, and cause, if known: Sepsis o With: Severe Sepsis xx Other, please specify ___COVID 19 Unable to determine o Present on Admission: Yes or No o Link or clarify if there is associated (due to/with): Organ failure (Last Revision: July 2017) MTDD
== END 2020-03-06 17:10 | disposition expired | DRG 177 ==
LOC: EC 21:20 → 3SCARD 23:16 → 4SSUR 03-02 14:50
PROVIDERS: ADMIT Internal Medicine Geriatric Medicine; ATTEND Internal Medicine Geriatric Medicine
PROC: XW033E5 Introduction of Remdesivir Anti-infective into Peripheral Vein, Percutaneous Approach, New Technology Group 5 (ICD-10-PCS; principal; 2020-03-02)
PROC: XW13325 Transfusion of Convalescent Plasma (Nonautologous) into Peripheral Vein, Percutaneous Approach, New Technology Group 5 (ICD-10-PCS; 2020-03-02)
DX: U07.1 COVID-19 (principal); J12.89 Other viral pneumonia; J96.01 Acute respiratory failure with hypoxia; E87.2 Acidosis; I48.20 Chronic atrial fibrillation, unspecified; I27.20 Pulmonary hypertension, unspecified; E11.40 Type 2 diabetes mellitus with diabetic neuropathy, unspecified; Z66 Do not resuscitate; Z51.5 Encounter for palliative care; Z79.01 Long term (current) use of anticoagulants; T38.0X5A Adverse effect of glucocorticoids and synthetic analogues, initial encounter; I44.7 Left bundle-branch block, unspecified; H91.90 Unspecified hearing loss, unspecified ear; D72.810 Lymphocytopenia; E11.65 Type 2 diabetes mellitus with hyperglycemia; E78.5 Hyperlipidemia, unspecified; I10 Essential (primary) hypertension; Z82.49 Family history of ischemic heart disease and other diseases of the circulatory system; Z83.3 Family history of diabetes mellitus; Z80.9 Family history of malignant neoplasm, unspecified; Z82.0 Family history of epilepsy and other diseases of the nervous system; R45.1 Restlessness and agitation; M25.461 Effusion, right knee; I08.3 Combined rheumatic disorders of mitral, aortic and tricuspid valves; Z98.49 Cataract extraction status, unspecified eye; Z79.899 Other long term (current) drug therapy; Z87.891 Personal history of nicotine dependence; Z83.1 Family history of other infectious and parasitic diseases; R74.01 Elevation of levels of liver transaminase levels; F41.9 Anxiety disorder, unspecified
CPT/HCPCS: 36415; 71045; 71046; 71275; 80053; 82728; 83036; 83605; 83615; 83735; 84145; 84484; 85025; 85379; 85610; 85652; 85730; 86140; 86850; 86900; 86901; 87040; 87502; 87635; 93005; 94640; 96360; 96361; 96365; 96366; 96374; 96375; 99285